=== PATIENT | male | born 1955 | race Caucasian/White ===

== ENCOUNTER 2017-05-11 10:33 | Inpatient (IN) | payer BC ==
[~2017-05-11] VITALS: Ht 188 cm; Wt 101.2 kg
[2017-05-11] MEDS ORDERED: MORPHINE SULFATE 2 MG/ML SYR IV STA (12:15)
[2017-05-11] MEDS ORDERED: SODIUM CHLORIDE FLUSH 10 ML SYR INJ PRN (12:15)
[2017-05-11] MEDS ORDERED: ONDANSETRON HCL INJ 2 MG/ML VIAL IV STA (12:15)
[2017-05-11 12:25] LABS: BASOPHILS % 0.3 % (0.0-1.0); HEMATOCRIT 47.9 % (38.2-49.6); HEMOGLOBIN 16.6 g/dL (14.0-18.0); LYMPHOCYTES # (AUTO) 1.7 (1.0-3.2); LYMPHOCYTES % 13.9 % (18.0-39.1); MEAN CORPUSCULAR HEMOGLOBIN 32.8 pg (28-32); MEAN CORPUSCULAR HGB CONC 34.7 g/dL (31-35); MEAN CORPUSCULAR VOLUME 94.7 fL (81-99); MONOCYTES # (AUTO) 1.2 (0.2-0.8); MONOCYTES % 9.9 % (4.4-11.3); NEUTROPHILS # (AUTO) 9.5 (2.1-6.9); NEUTROPHILS % 75.6 % (38.7-80.0); PLATELET COUNT 148 x10e3/uL (140-360); RED BLOOD COUNT 5.06 x10e6/uL (4.3-5.7); RED CELL DISTRIBUTION WIDTH 13.5 % (11.7-14.4)
[2017-05-11 12:28] LABS: BILIRUBIN,URINE NEGATIVE (NEGATIVE); KETONES,URINE 1+ (NEGATIVE); LEUKOCYTE ESTERASE ,URINE TRACE (NEGATIVE); NITRITE,URINE NEGATIVE (NEGATIVE); URINE UROBILINOGEN 0.2 mg/dL (0.2 - 1)
[2017-05-11 12:41] LABS: ALANINE AMINOTRANSFERASE 17 IU/L (0-55); ALBUMIN 3.3 g/dL (3.5-5.0); ALBUMIN/GLOBULIN RATIO 0.8 (0.8-2.0); ALKALINE PHOSPHATASE 81 IU/L (40-150); AMYLASE 38 U/L (25-125); ANION GAP 12.9 mmol/L (8-16); BLOOD UREA NITROGEN 25 mg/dL (7-26); BUN/CREATININE RATIO 29 (6-25); CARBON DIOXIDE 25 mmol/L (22-29); CHLORIDE 104 mmol/L (98-107); CREATINE KINASE 154 IU/L (30-200); CREATININE, SERUM 0.86 mg/dL (0.72-1.25); EST GLOMERULAR FILTRATION RATE > 60 ML/MIN (60-); GLUCOSE 132 mg/dL (74-118); LIPASE 12 U/L (8-78); POTASSIUM 3.9 mmol/L (3.5-5.1); SODIUM 138 mmol/L (136-145)
[2017-05-11 12:46] LABS: CLARITY,URINE SL CLOUDY (CLEAR); COLOR,URINE AMBER (YELLOW); EPITHELIAL CELLS,URINE FEW /LPF; PROTEIN,URINE DIPSTICK 1+ (NEGATIVE); WBC,URINE (MAN) 0-5 /HPF (0-5)
[2017-05-11] MEDS ORDERED: DIATRIZOATE MEGL/DIATRIZOA SOD 30 ML BTL PO ONE (13:14)
--- NOTE | 2017-05-11 15:17 | Diagnostic Imaging Report ---
PROCEDURE: CT ABDOMEN AND PELVIS WITH CONTRAST TECHNIQUE: The abdomen and pelvis were scanned utilizing a multidetector helical scanner from the diaphragm to the lesser trochanter after the IV administration of 100 cc of Isovue 370 and the oral administration of gastrografin. Coronal and sagittal multiplanar reformations were obtained. COMPARISON: None. INDICATIONS: ABD PAIN FINDINGS: LOWER THORAX: Right lower lobe atelectasis. Aortic valve replacement. Median sternotomy wires. HEPATOBILIARY: Cirrhotic liver morphology with nodular surface contour. No focal hepatic lesions. No biliary ductal dilatation. Gallstones in the gallbladder and gallbladder neck SPLEEN: No splenomegaly. PANCREAS: No focal masses or ductal dilatation. ADRENALS: No adrenal nodules. KIDNEYS/URETERS: No hydronephrosis, stones, or solid mass lesions. PELVIC ORGANS/BLADDER: Mild hyperdensity in the right sided of the bladder measuring up to 0.7 cm in thickness. PERITONEUM / RETROPERITONEUM: No free air. Small amount of free fluid adjacent to liver. LYMPH NODES: No lymphadenopathy. VESSELS: Paraesophageal and perisplenic varices. GI TRACT: 15-20 cm long wall thickening of the proximal jejunum, shortly after the ligament of Treitz. and surrounding inflammatory changes with associated enlarged mesenteric lymph nodes measure up to 0.8 cm. The stomach and remaining small bowel are unremarkable. Scattered sigmoid diverticula without evidence of diverticulitis. BONES AND SOFT TISSUES: Unremarkable. IMPRESSION: 1. 15-20 cm long acutely inflamed proximal jejunum with surrounding lymphadenopathy. There is nonspecific but may be seen in infectious, inflammatory (Crohn's), and neoplastic such as lymphoma. 2. Cirrhosis with small amount of free fluid in the abdomen and pelvis. 3. Nonspecific hyperdensity along the right aspect of the bladder. This may be early contrast excretion from the kidneys. However, no other contrast is identified in the ureter. Recommend cystoscopy or CT urogram versus CT cystogram Dictated by: Pedro Luis Turner M.D. on 05/11/2017 at 15:26 Electronically approved by: Pedro Luis Turner M.D. on 05/11/2017 at 15:26
[2017-05-11] MEDS ORDERED: MORPHINE SULFATE 2 MG/ML SYR IV PRN (16:45)
[2017-05-11] MEDS ORDERED: ULTRAM 50MG50 MG (17:29)
[2017-05-11] MEDS ORDERED: METRONIDAZOLE500 MG PO ×2 (17:29→23:29)
[2017-05-11] MEDS ORDERED: CIPROFLOXACIN500 MG PO (17:29)
[2017-05-11] MEDS: PIPER-TAZ 3.375 GM 50 ML IV SCH (18:26)
[2017-05-11] MEDS: ONDANSETRON HCL INJ 2 MG/ML VIAL IV PRN ×2 (18:26→22:44)
[2017-05-11] MEDS: MORPHINE SULFATE 5 MG/ML VIAL IV PRN ×2 (18:26→22:43)
[2017-05-11] MEDS: SODIUM CHLORIDE 0.9% 1000ML 1,000 ML IV SCH (18:26)
[2017-05-11] MEDS ORDERED: IOPAMIDOL 370 MG/ML 200 ML INFUS..BTL INJ ONE (19:22)
[2017-05-11] MEDS ORDERED: SODIUM CHLORIDE 0.9% 50ML 50 ML ONE (19:22)
[2017-05-11] MEDS: METRONIDAZOLE 500MG/NS 100ML 100 ML IV SCH (19:28)
[2017-05-11 19:54] VITALS: BP 157/80
--- NOTE | 2017-05-11 21:49 | Consultation ---
DATE OF CONSULTATION: May 11, 2017 GASTROENTEROLOGY CONSULTATION REFERRING PHYSICIAN: Dr. Walsh REASON FOR CONSULTATION: Nausea, vomiting, enteritis. HISTORY OF PRESENT ILLNESS: Mr. Carballo is a 61-year-old man, who has largely stayed away from medical care and not see a doctor in a long time. He was in his usual state of health until Tuesday. At that time, he developed significant abdominal pain, chills, and nausea and vomiting. He denies diarrhea. Abdominal pain is upper abdominal, but generalized without radiating to the back. It was likely punched in the stomach of 10 out of 10 severity. He has not been able to tolerate anything orally including his aspirin that he takes for his cardiac issues. He is not aware of any sort of liver disease. His was recently treated for hepatitis C. He has not been on any sick contacts or ate any unusual foods; however, he was on a cruise to the [facility] 3 weeks ago. At which time, they did not eat off the cruise ship. He has also been having hematuria and was later to see a urologist, but has not actually been able to go to that appointment yet. He has not had any blood in his stools that he has noted. He was seen at [facility] a couple of days ago, given Cipro and Flagyl, but was unable to tolerate it p.o. At that time, his CAT scan also showed enteritis and he did not have a leukocytosis at that time. PAST MEDICAL HISTORY 1. Coronary artery disease. 2. Aortic aneurysm, status post repair at the same time as his aortic valve repair. Given that he does not go to the doctor much, he was not aware of any other medical problems. SOCIAL HISTORY: He drinks alcohol socially, but not excess per his report. FAMILY HISTORY: Negative for liver disease. Positive for diabetes in his father. REVIEW OF SYSTEMS: Twelve-system review is positive for that mentioned in HPI; otherwise, unremarkable. PHYSICAL EXAMINATION GENERAL: Calm, alert, oriented. No acute distress. HEENT: Pupils equal, round, reactive to light. NECK: Supple. LUNGS: Clear. CARDIOVASCULAR: S1, S2. ABDOMEN: Soft. He is tender centrally, less so the rest of his abdomen. No rebound, guarding or mass. EXTREMITIES: No clubbing, cyanosis. PSYCH: Calm and cooperative. NEUROLOGIC: Nonfocal. HEM/ONC: No bruising or adenopathy. Electronic health records reviewed for laboratory and radiologic studies as well as history. ASSESSMENT 1. Abnormal jejunal imaging concerning for enteritis. Possibly infectious and neoplastic process is not excluded. He does have leukocytosis. Could be secondary to infectious process or reactive. At the current time, I would agree with continuing him on antibiotics to cover bowel laurie and supportive care, intravenous fluids, some clear liquids as tolerated. Would provide him supportive care in this manner for tomorrow and then, plan for upper enteroscopy on Tuesday if he will be able to tolerate it. Enteroscopy should be able to reach the proximal jejunum with the pediatric colonoscope for further evaluation of his pathology. 2. A diagnosis of cirrhosis based on imaging. Will send off for viral hepatitis studies. He has an abnormal bilirubin, which may be due to stress fasting and metabolism versus underlying liver disease. His other liver function tests and his platelets are actually fine. Will need to send off coagulopathies. Will need to send off an alpha fetoprotein. He will need to be instructed to avoid shellfish in an outpatient basis. Continue with liver screening for function, for hepatocellular carcinoma, and consider vaccination against hepatitis A and B if he is not immune. Additionally, he has hematuria and a bladder issue and they want to see urology. Thank you very much for asking us to see Mr. Carballo. Any questions or concerns, please do not hesitate to contact me. I will follow with you. Job#: [id number] CQ MTDD
[2017-05-11] MEDS ORDERED: PIPER-TAZ 3.375 GM/50 ML BAG IV SCH (22:00)
[2017-05-11] MEDS ORDERED: CIPRO500 MG PO (23:29)
[2017-05-11] MEDS ORDERED: ULTRAM 50MG50 MG PO (23:43)
[2017-05-12] VITALS (10 sets, daily range): BP systolic 130–157; BP diastolic 60–80
[2017-05-12] MEDS: SODIUM CHLORIDE 0.9% 1000ML 1,000 ML IV SCH ×4 (00:42→17:56)
[2017-05-12] MEDS: METRONIDAZOLE 500MG/NS 100ML 100 ML IV SCH ×4 (01:00→17:56)
[2017-05-12] MEDS: PIPER-TAZ 3.375 GM 50 ML IV SCH ×3 (06:15→21:51)
[2017-05-12 06:20] LABS: BASOPHILS # (AUTO) 0.1 (0.0-0.1); BASOPHILS % 0.4 % (0.0-1.0); HEMATOCRIT 44.4 % (38.2-49.6); HEMOGLOBIN 15.3 g/dL (14.0-18.0); LYMPHOCYTES # (AUTO) 1.9 (1.0-3.2); LYMPHOCYTES % 14.6 % (18.0-39.1); MEAN CORPUSCULAR HEMOGLOBIN 32.9 pg (28-32); MEAN CORPUSCULAR HGB CONC 34.5 g/dL (31-35); MEAN CORPUSCULAR VOLUME 95.5 fL (81-99); MONOCYTES # (AUTO) 1.3 (0.2-0.8); NEUTROPHILS # (AUTO) 9.6 (2.1-6.9); NEUTROPHILS % 74.6 % (38.7-80.0); PLATELET COUNT 114 x10e3/uL (140-360); RED BLOOD COUNT 4.65 x10e6/uL (4.3-5.7); RED CELL DISTRIBUTION WIDTH 13.9 % (11.7-14.4)
[2017-05-12 06:37] LABS: INR 1.11; PARTIAL THROMBOPLASTIN TIME 37.1 seconds (23.8-35.5); PROTHROMBIN TIME 14.9 seconds (11.9-14.5)
[2017-05-12 06:45] LABS: ALANINE AMINOTRANSFERASE 12 IU/L (0-55); ALBUMIN 2.8 g/dL (3.5-5.0); ALBUMIN/GLOBULIN RATIO 0.8 (0.8-2.0); ALKALINE PHOSPHATASE 69 IU/L (40-150); ANION GAP 12.2 mmol/L (8-16); BLOOD UREA NITROGEN 25 mg/dL (7-26); BUN/CREATININE RATIO 30 (6-25); CALCIUM 8.5 mg/dL (8.4-10.2); CARBON DIOXIDE 25 mmol/L (22-29); CHLORIDE 107 mmol/L (98-107); CREATININE, SERUM 0.82 mg/dL (0.72-1.25); EST GLOMERULAR FILTRATION RATE > 60 ML/MIN (60-); GLUCOSE 125 mg/dL (74-118); POTASSIUM 4.2 mmol/L (3.5-5.1); SODIUM 140 mmol/L (136-145)
[2017-05-12] MEDS: AMLODIPINE BESYLATE 10 MG TAB PO SCH (11:00)
[2017-05-12] MEDS: FAMOTIDINE 20 MG TAB PO SCH ×2 (12:13→17:56)
--- NOTE | 2017-05-12 16:31 | History and Physical ---
PRIMARY CARE PROVIDER: Dr. Kalyan Roberson. CHIEF COMPLAINT: Abdominal pain. HISTORY OF PRESENT ILLNESS: Mr. Carballo is a 61-year-old gentleman who has had periumbilical sharp stabbing abdominal pain for almost a week now. He was seen at an outside ER a couple days ago. A CT scan showed inflammation in the proximal jejunum and some diverticulosis, and he was discharged on Cipro and Flagyl from the ER. He was unable to keep the medicine down due to nausea and vomiting and presented to our ER for further evaluation. REVIEW OF SYSTEMS: He denies fever, chills or weight loss. He denies sinus congestion or sore throat. He denies chest pain or palpitations. He denies shortness of breath, wheezing or cough. He is complaining of epigastric and periumbilical sharp stabbing abdominal pain with some nausea and vomiting, no diarrhea, no melena. He denies dysuria or flank pain although he does state that he has noticed hematuria. He denies joint pain or swelling. He denies rash or pruritus. He denies bleeding or bruising. He denies headache, vertigo or loss of consciousness. He denies depression, agitation, homicidal or suicidal ideation. PAST MEDICAL HISTORY: Significant only for the hematuria that was noted about a month or 2 ago at the PCP's office. He has been waiting for an appointment to see the urologist. He is on no chronic medications. He does have a history of repair of ascending aortic aneurysm, aortic valve replacement with biosynthetic valve that was done in 2016. He does not have to be anticoagulated as a result. ALLERGIES: HE HAS NO KNOWN DRUG ALLERGIES. FAMILY HISTORY: Unremarkable. SOCIAL HISTORY: The patient is . Georgian is his primary language. He does not smoke, drink or use illegal drugs, and he is generally independently functioning. PHYSICAL EXAMINATION: PSYCHIATRIC: He is alert and oriented times 3 with normal mood and affect. CONSTITUTIONAL: He has a normal body habitus. Is in no acute distress. VITAL SIGNS: Blood pressure 146/71. Pulse 87 and regular. Respiratory rate 20. O2 sat 92%. Temperature 98.8. HEENT: His head is atraumatic. His eyes are anicteric with clear conjunctivae. Ears and nares are without erythema or discharge. Oropharynx is clear. NECK: Is supple with no mass or thyromegaly. LYMPHATIC SYSTEM: He has no palpable cervical, axillary or inguinal adenopathy. CARDIOVASCULAR: His heart has a regular rate and rhythm. He does have a very slight 1/6 to 2/6 systolic ejection murmur at the left sternal border. He has no carotid bruit. He has no peripheral edema. He has palpable dorsal pedal pulses. RESPIRATORY: Lungs are clear to auscultation and percussion with normal respiratory effort. GASTROINTESTINAL: His abdomen is soft. He has some mild periumbilical and epigastric tenderness without rebound or guarding. He has no hepatosplenomegaly or masses palpable, and normal bowel sounds are present. CUTANEOUS: His skin is warm and dry to the touch with no rash or skin breakdown. MUSCULOSKELETAL: His joints are in normal alignment without erythema or swelling. He has no calf tenderness. NEUROLOGIC: Exam is nonfocal with intact cranial nerves and no motor or sensory deficits. DIAGNOSTIC STUDIES: CT scan of the abdomen shows cirrhosis and some esophageal varices. It shows a 10 cm proximal jejunum with circumferential wall thickening and surrounding inflammatory changes and a 0.7 cm hyperintensity in the right bladder wall. His UA has 6 to 10 red cells, no white cells. His culture has no growth at 24 hours. His EKG shows normal sinus rhythm with left atrial enlargement. His chemistry profile shows normal electrolytes. CO2 25. Creatinine 0.82, BUN 25 for a normal GFR. Glucose 125. Calcium 8.5. His transaminases and alk phos are normal, bilirubin slightly elevated at 1.7. CBC shows a white count of 12.8 with 75% neutrophils and 15% lymphocytes. Hemoglobin 15.3, hematocrit 44.4, and platelet count 114,000. IMPRESSION AND PLAN: 1. Enteritis. Will start the patient on IV Zosyn and Flagyl. Will check inflammatory bowel labs and will consult GI for possible endoscopy. 2. Hematuria and bladder wall mass. Will consult Urology for evaluation. 3. Cirrhosis. Will check hepatitis panel, most likely from past alcohol consumption. 4. Elevated blood pressure without a diagnosis of hypertension, and the patient's blood pressure 146/71. Will start Norvasc daily and monitor his blood pressure. 5. For prophylaxis, will use SCDs for DVT prophylaxis and Pepcid for GI prophylaxis. Job#: [id number] EV
[2017-05-12] MEDS: ONDANSETRON HCL INJ 2 MG/ML VIAL IV PRN (18:23)
[2017-05-12] MEDS: MORPHINE SULFATE 5 MG/ML VIAL IV PRN (18:26)
[2017-05-13] VITALS: BP 144/63
[2017-05-13] MEDS: METRONIDAZOLE 500MG/NS 100ML 100 ML IV SCH ×4 (00:25→18:31)
[2017-05-13] MEDS: MORPHINE SULFATE 5 MG/ML VIAL IV PRN ×5 (00:25→23:08)
[2017-05-13] MEDS: ONDANSETRON HCL INJ 2 MG/ML VIAL IV PRN (00:25)
[2017-05-13] MEDS: SODIUM CHLORIDE 0.9% 1000ML 1,000 ML IV SCH ×4 (00:42→16:42)
[2017-05-13 04:00] VITALS: BP 120/62
[2017-05-13] MEDS: PIPER-TAZ 3.375 GM 50 ML IV SCH ×3 (05:06→22:27)
[2017-05-13] MEDS: FAMOTIDINE 20 MG TAB PO SCH ×2 (07:30→14:39)
[2017-05-13 08:00] VITALS: BP 133/67
[2017-05-13] MEDS: AMLODIPINE BESYLATE 10 MG TAB PO SCH (09:00)
[2017-05-13 12:00] VITALS: BP 122/63
--- NOTE | 2017-05-13 15:33 | Consultation ---
DATE OF CONSULTATION: May 13, 2017 UROLOGY CONSULTATION REASON FOR CONSULTATION: Gross and microscopic hematuria. HISTORY OF PRESENT ILLNESS: Jake Carballo is a 61-year-old man who had noted slight blood tinging in his urine a couple of months ago. Patient has had multiple urinalyses, documenting microscopic hematuria. He is scheduled to see us as an outpatient, but ended up becoming ill and therefore was admitted to the hospital, diagnosed with jejunal enteritis. Biopsies were performed. He has been on antibiotics. He has had persistent nausea and vomiting. Patient denies any lower tract obstructive symptoms or any lower tract irritative symptoms. Denies any previous urinary tract infections. PAST MEDICAL AND SURGICAL HISTORY 1. Status post aortic valve replacement with porcine valve with repair of ascending aortic aneurysm performed by Dr. Morales. 2. Cirrhosis by CT scanning. FAMILY HISTORY: Noncontributory to the urological problems. SOCIAL HISTORY: The patient quit smoking 5 years ago after smoking only 1 pack per cigarettes per week. He drinks socially on weekends only. 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 He has supportive family at the bedside. CURRENT MEDICATIONS: Please refer to the MAR. ALLERGIES: NONE KNOWN. REVIEW OF SYSTEMS: As discussed above in history of present illness and past medical history, is otherwise negative for all other systems. PHYSICAL EXAMINATION GENERAL: Healthy-appearing 61-year-old man lying in bed, in no apparent distress. VITAL SIGNS: He is currently afebrile. Vital signs are currently stable. ABDOMEN: Soft, nondistended, nontender, without costovertebral angle tenderness. Kidneys are not palpable. No hepatosplenomegaly. No obvious evidence of hernia. GENITOURINARY: Testes are descended bilaterally. Testes and epididymis are bilaterally palpably normal. The patient has a normal circumcised male phallus with normal meatus without any lesions. Digital rectal examination is deferred at the present time. For the remaining physical examination systems, please refer to admission history and physical on the chart. LABORATORY STUDIES: His urine culture is negative. His white blood cell count is 12,850, his hemoglobin is 15.3, platelets are low at 114,000. The patient's creatinine is normal. His bilirubin is elevated at 1.7. Creatinine is normal at 0.82. Urinalysis is significant for 6 to [address] scan of the abdomen and pelvis was remarkable for only some bladder wall thickening versus early excretion of contrast on the right side of the bladder, but no evidence of hydronephrosis, stones, or renal lesions. ASSESSMENT 1. Gross hematuria. 2. Microscopic hematuria that is persistent. 3. Nausea and vomiting. 4. Leukocytosis. 5. Arthritis. 6. Thrombocytopenia. PLAN 1. I defer the abdominal pain, leukocytosis, and thrombocytopenia to the other physicians on the case. 2. I believe we should wait until the patient's current inflammatory condition subsides and then return to the operating room on an outpatient basis in several weeks to perform cystoscopy and retrograde ureteropyelography. 3. Ongoing urological followup is certainly indicated. Thank you very much for involving us in the care of your patient. Will happy to follow him along with you as well as in outpatient. Job#: [id number] PAT cc:Kalyan Roberson DO
[2017-05-13 17:40] VITALS: BP 125/65
[2017-05-13] MEDS ORDERED: PROPOFOL IV EMULSION 10 MG/ML 20 ML VIAL ONE (17:43)
[2017-05-13] MEDS ORDERED: FENTANYL CITRATE/PF 100MCG/2 ML INJ ONE (19:14)
[2017-05-13 20:00] VITALS: BP 135/70
[2017-05-14] VITALS (7 sets, daily range): BP systolic 128–147; BP diastolic 52–78
[2017-05-14] MEDS: SODIUM CHLORIDE 0.9% 1000ML 1,000 ML IV SCH ×3 (00:32→16:42)
[2017-05-14] MEDS: METRONIDAZOLE 500MG/NS 100ML 100 ML IV SCH ×5 (00:32→23:52)
[2017-05-14] MEDS: PIPER-TAZ 3.375 GM 50 ML IV SCH ×3 (05:40→21:33)
[2017-05-14 07:57] LABS: BASOPHILS # (AUTO) 0.1 (0.0-0.1); BASOPHILS % 1.3 % (0.0-1.0); EOSINOPHILS # (AUTO) 0.4 (0.0-0.4); EOSINOPHILS % 4.6 % (0.0-6.0); HEMOGLOBIN 13.5 g/dL (14.0-18.0); LYMPHOCYTES # (AUTO) 1.4 (1.0-3.2); LYMPHOCYTES % 18.8 % (18.0-39.1); MEAN CORPUSCULAR HGB CONC 34.6 g/dL (31-35); MEAN CORPUSCULAR VOLUME 95.4 fL (81-99); MONOCYTES # (AUTO) 0.8 (0.2-0.8); MONOCYTES % 10.2 % (4.4-11.3); NEUTROPHILS % 64.8 % (38.7-80.0); PLATELET COUNT 97 x10e3/uL (140-360); RED BLOOD COUNT 4.09 x10e6/uL (4.3-5.7); RED CELL DISTRIBUTION WIDTH 13.4 % (11.7-14.4)
[2017-05-14 08:14] LABS: ANION GAP 11.6 mmol/L (8-16); BLOOD UREA NITROGEN 15 mg/dL (7-26); BUN/CREATININE RATIO 20 (6-25); CALCIUM 7.5 mg/dL (8.4-10.2); CARBON DIOXIDE 24 mmol/L (22-29); CHLORIDE 105 mmol/L (98-107); CREATININE, SERUM 0.74 mg/dL (0.72-1.25); EST GLOMERULAR FILTRATION RATE > 60 ML/MIN (60-); GLUCOSE 98 mg/dL (74-118); POTASSIUM 3.6 mmol/L (3.5-5.1); SODIUM 137 mmol/L (136-145)
[2017-05-14] MEDS: AMLODIPINE BESYLATE 10 MG TAB PO SCH (09:00)
[2017-05-14] MEDS: FAMOTIDINE 20 MG TAB PO SCH (09:17)
[2017-05-14] MEDS: PANTOPRAZOLE 40 MG 10ML VIAL IV SCH (18:02)
[2017-05-14] MEDS: MORPHINE SULFATE 5 MG/ML VIAL IV PRN (21:46)
[2017-05-15] VITALS: BP 139/83
[2017-05-15] MEDS: SODIUM CHLORIDE 0.9% 1000ML 1,000 ML IV SCH ×2 (01:31→09:56)
[2017-05-15 04:00] VITALS: BP 148/74
[2017-05-15] MEDS: METRONIDAZOLE 500MG/NS 100ML 100 ML IV SCH ×2 (05:20→13:00)
[2017-05-15] MEDS: PIPER-TAZ 3.375 GM 50 ML IV SCH ×3 (06:31→22:04)
[2017-05-15 08:00] VITALS: BP 149/82
[2017-05-15] MEDS: PANTOPRAZOLE 40 MG 10ML VIAL IV SCH (09:45)
[2017-05-15] MEDS: METRONIDAZOLE 500 MG TAB PO SCH ×2 (13:38→22:04)
[2017-05-15 14:30] VITALS: BP 151/75
[2017-05-15 16:45] VITALS: BP 148/70
[2017-05-15] MEDS ORDERED: LACTOBACILLUS ACIDOPHILUS CAPSULE PO SCH (17:00)
[2017-05-15] MEDS: PANTOPRAZOLE SOD 40 MG TABEC PO SCH (17:20)
[2017-05-15 20:00] VITALS: BP 144/68
[2017-05-15] MEDS: LACTOBACILLUS ACIDOPHILUS CAPSULE PO SCH (22:03)
[2017-05-16] VITALS: BP 135/74
[2017-05-16 01:38] VITALS: BP 135/74
[2017-05-16 04:00] VITALS: BP 139/77
[2017-05-16] MEDS: PIPER-TAZ 3.375 GM 50 ML IV SCH (06:22)
[2017-05-16] MEDS: METRONIDAZOLE 500 MG TAB PO SCH (06:22)
--- NOTE | 2017-05-16 07:14 | Progress Note ---
DATE: PCP: Dr. Kalyan Roberson CONSULTANTS: Dr. Clayton Merino, urology, Dr. Bob Ponce, GI. CHIEF COMPLAINT: Abdominal pain. ALLERGIES: NO KNOWN DRUG ALLERGIES. SUBJECTIVE: Patient reports he is on clear liquids and tolerating them well. Would like to be advanced diet. OBJECTIVE VITALS: Temperature 97.7, pulse 77, blood pressure 140/82, respirations 20, and satting 96% on room air. Height 6 feet 2 inches, weight 223. GENERAL: Patient is awake, alert and oriented times 3. LUNGS: Clear to auscultation bilaterally. Normal respiratory effort. HEENT: Anicteric. Extraocular muscles are intact. ABDOMEN: Soft. Bowel sounds present. CV: Regular rate and rhythm. No murmurs appreciated. NECK: Supple. Trachea midline. EXTREMITIES: No calf tenderness. NEUROLOGICAL: Nonfocal. MEDICATIONS: Please see MAR. Some medications will be adjusted. No labs were done today. Continue pending hepatitis panel and ANCA panel. Urine cultures were negative. EGD was done and shows gastritis, jejunitis, gastric retention. DIAGNOSES 1. Enteritis: Continue with Zosyn intravenously. Flagyl will be changed to p.o. 500 mg t.i.d. Will also add probiotics 1 p.o. b.i.d. Will advance diet to as tolerated in preparation for discharge. 2. Hematuria with bladder mass: Urology is following. Will follow up as an outpatient. 3. Cirrhosis: Hepatitis panel is pending. Gastroenterology is following. with recent treatment with Harvoni treatment for hepatitis C. 4. Elevated blood pressure: Controlled with current medications. Continue to take Norvasc. Has no history of hypertension. Will respect the patient's wish. 5. History of hypocalcemia during the admission: Last calcium level recorded was on May 14, 2017, of 7.5. Will repeat blood work in the morning. Protonix has been changed from intravenous to p.o. as well. Intravenous fluids have been discontinued due to the patient tolerating fluids well. DICTATED BY BIANCA RODRIGUEZ NP Job#: [id number] AL
[2017-05-16 08:00] VITALS: BP 150/80
[2017-05-16] MEDS ORDERED: FLAGYL500 MG PO (08:30)
[2017-05-16] MEDS ORDERED: CEFTIN PEG (08:30)
[2017-05-16] MEDS ORDERED: PROTONIX40 MG/ML PO (08:30)
[2017-05-16] MEDS ORDERED: TYLENOL # 31 EA PO (08:30)
[2017-05-16] MEDS ORDERED: Lactobacillus Acidophilus PO (08:30)
[2017-05-16] MEDS ORDERED: CEFTIN PO (08:34)
[2017-05-16] MEDS: PANTOPRAZOLE SOD 40 MG TABEC PO SCH (08:58)
[2017-05-16] MEDS: LACTOBACILLUS ACIDOPHILUS CAPSULE PO SCH (08:58)
[2017-05-16] MEDS ORDERED: ULTRAM 50MG50 MG PO (09:06)
[2017-05-16 09:16] LABS: BASOPHILS # (AUTO) 0.1 (0.0-0.1); BASOPHILS % 0.6 % (0.0-1.0); EOSINOPHILS # (AUTO) 0.4 (0.0-0.4); EOSINOPHILS % 4.5 % (0.0-6.0); HEMOGLOBIN 15.3 g/dL (14.0-18.0); LYMPHOCYTES % 25.1 % (18.0-39.1); MEAN CORPUSCULAR HGB CONC 34.8 g/dL (31-35); MEAN CORPUSCULAR VOLUME 94.8 fL (81-99); MONOCYTES # (AUTO) 0.7 (0.2-0.8); MONOCYTES % 8.7 % (4.4-11.3); NEUTROPHILS # (AUTO) 4.8 (2.1-6.9); NEUTROPHILS % 60.8 % (38.7-80.0); PLATELET COUNT 139 x10e3/uL (140-360); RED BLOOD COUNT 4.64 x10e6/uL (4.3-5.7); RED CELL DISTRIBUTION WIDTH 13.6 % (11.7-14.4)
[2017-05-16 09:40] LABS: ANION GAP 11.5 mmol/L (8-16); BLOOD UREA NITROGEN 7 mg/dL (7-26); BUN/CREATININE RATIO 8 (6-25); CALCIUM 8.2 mg/dL (8.4-10.2); CARBON DIOXIDE 26 mmol/L (22-29); CHLORIDE 107 mmol/L (98-107); CREATININE, SERUM 0.83 mg/dL (0.72-1.25); EST GLOMERULAR FILTRATION RATE > 60 ML/MIN (60-); GLUCOSE 114 mg/dL (74-118); POTASSIUM 3.5 mmol/L (3.5-5.1); SODIUM 141 mmol/L (136-145)
--- NOTE | 2017-05-17 11:44 | Discharge Summary ---
ADMITTING DIAGNOSES 1. Enteritis. 2. Hematuria with bladder wall mass. 3. Cirrhosis. 4. Elevated blood pressure. DISCHARGE DIAGNOSES 1. Enteritis. 2. Hematuria with bladder wall mass. 3. Cirrhosis. 4. Elevated blood pressure. 5. Ruled out hypertension. HISTORY: Patient has a history of hematuria that was noticed about a month or 2 ago at PCP's office. He has been waiting to see the urologist. He does have a history of ascending aortic aneurysm, aortic valve replacement with a biosynthetic valve that was done in 2016. He does not have to be anticoagulated as the result. He is on no chronic medications. HOSPITAL COURSE: A 61-year-old gentleman presented with periumbilical sharp stabbing abdominal pain for almost 2 weeks. He was seen at an outside ER a couple days ago. A CAT scan shows inflammation on the proximal jejunum and some diverticulosis and he was discharged on Cipro and Flagyl. He was unable to keep the medication down due to nausea and vomiting and presented to the ER for further evaluation. Patient was started on Zosyn and Flagyl at the hospital and GI consulted for possible endoscopy. For hematuria, urology was consulted. Hepatitis panel was checked for due to cirrhosis. Patient was started on Norvasc daily for elevated blood pressure, but refused and did not need it during the hospital stay. His blood pressure dropped once the pain and nausea went away. Per GI, an EGD was done, which showed gastritis, jejunitis and gastric retention. Biopsies were done, which are not back at the time of discharge, but when speaking to GI, he said it could have been an ischemic area that they need to look at further. Patient can discharge home and followup outpatient with GI. ANCA and hepatitis panels were still pending at the time of discharge. They will also followup with GI for those results. Patient was started on clear liquids and the diet was advanced as tolerated. Patient was able to eat regular foods by the time of discharge. A CAT scan was done on admission that showed 15 to 20 cm long acutely inflamed proximal jejunum with surrounding lymphadenopathy, cirrhosis with a small amount of free fluid, and nonspecific hyperintensity along the right aspect of the bladder. Per urology, he did not want to do any procedures while the patient was dealing with an illness, but once the inflammatory condition subsided, then urology said the patient can follow up to do cystoscopy and retrograde outpatient in a few weeks. Urine cultures completed were negative. Vital signs were stable. Patient tolerating diet, lives at home with family, and is ready to go home. All consults have approved the discharge. Patient was sent home on p.o. antibiotics per GI and PPI and he will follow that with GI. DICTATED BY: LETTY ESTRADA NP BRONSON AGUIRRE MD Job#: [id number] VAS
== END 2017-05-16 10:07 | disposition home or self-care (01) | DRG 372 ==
LOC: ER 10:33 → ERHOLD 16:51 → MED/SURG 19:34
PROVIDERS: ADMIT Internal Medicine; ATTEND Internal Medicine
PROC: 0DB88ZX Excision of Small Intestine, Via Natural or Artificial Opening Endoscopic, Diagnostic (ICD-10-PCS; 2017-05-13)
PROC: 0DB68ZX Excision of Stomach, Via Natural or Artificial Opening Endoscopic, Diagnostic (ICD-10-PCS; principal; 2017-05-13 10:00)
DX: A04.9 Bacterial intestinal infection, unspecified (principal); K55.9 Vascular disorder of intestine, unspecified; D69.6 Thrombocytopenia, unspecified; E83.51 Hypocalcemia; K74.60 Unspecified cirrhosis of liver; R03.0 Elevated blood-pressure reading, without diagnosis of hypertension; N32.9 Bladder disorder, unspecified; R31.0 Gross hematuria; R11.2 Nausea with vomiting, unspecified; D72.829 Elevated white blood cell count, unspecified; M19.90 Unspecified osteoarthritis, unspecified site; Z87.891 Personal history of nicotine dependence; I25.10 Atherosclerotic heart disease of native coronary artery without angina pectoris; D64.9 Anemia, unspecified; Z95.2 Presence of prosthetic heart valve; K31.89 Other diseases of stomach and duodenum; R59.0 Localized enlarged lymph nodes; K29.50 Unspecified chronic gastritis without bleeding; K31.9 Disease of stomach and duodenum, unspecified; R31.29 Other microscopic hematuria
CPT/HCPCS: 36415; 43239; 74177; 80048; 80053; 81001; 82105; 82150; 82550; 82553; 83690; 84484; 85025; 85610; 85730; 86256; 86671; 86704; 86706; 86803; 87086; 87340; 87522; 88305; 88312; 88342; 93005; 96361; 99284; J2270; J2405; J2543; J7030; Q9967

== ENCOUNTER 2017-06-01 10:11 | Observation (INO) | payer BC ==
--- NOTE | 2017-05-30 15:56 | Diagnostic Imaging Report ---
PROCEDURE: Frontal and lateral views of the chest. COMPARISON: None. INDICATIONS: PRE OP RENAL SURGERY FINDINGS: Lines/tubes: None. Lungs: The lungs are well inflated and clear. There is no evidence of pneumonia or pulmonary edema. Pleura: There is no pleural effusion or pneumothorax. Heart and mediastinum: The heart and the mediastinum are normal. Median sternotomy wires. Prosthetic valve overlying the heart shadow. Bones: No acute bony abnormality. IMPRESSION: 1. No acute cardiopulmonary disease. Dictated by: Umberto Emery M.D. on 05/30/2017 at 16:05 Electronically approved by: Umberto Emery M.D. on 05/30/2017 at 16:05
[~2017-06-01] VITALS: Ht 188 cm; Wt 100.7 kg
[~2017-06-01 10:11] MED LIST: BELLADONNA/OPIUM 60 MG SUPP PR ONE; CEFTIN PEG; CEFTIN PO; CIPRO500 MG PO; CIPROFLOXACIN500 MG PO; FLAGYL500 MG PO; IOPAMIDOL 610MG/1ML 300 MG/ML VIAL IV ONE; Lactobacillus Acidophilus PO; METRONIDAZOLE500 MG PO; PROTONIX40 MG/ML PO; TYLENOL # 31 EA PO; ULTRAM 50MG50 MG; ULTRAM 50MG50 MG PO
[2017-06-01] MEDS ORDERED: GENTAMICIN 80MG/NS 100 ML 200 ML IV ONE (10:16)
[2017-06-01] MEDS ORDERED: FENTANYL CITRATE/PF 100MCG/2 ML INJ ONE ×2 (13:17→20:10)
[2017-06-01] MEDS ORDERED: MORPHINE SULFATE 5 MG/ML VIAL ONE (13:39)
[2017-06-01 16:30] VITALS: BP_SYST 108; BP_SYST 122; BP_DIAS 63; BP_DIAS 77
[2017-06-01] MEDS ORDERED: BELLADONNA/OPIUM 60 MG SUPP PR PRN (17:15)
[2017-06-01 20:00] VITALS: BP 114/76
[2017-06-01] MEDS ORDERED: SEVOFLURANE INHAL SOLN 250 ML PEN BTL ONE (20:17)
[2017-06-01] MEDS ORDERED: ONDANSETRON HCL INJ 2 MG/ML VIAL ONE (20:17)
[2017-06-01] MEDS ORDERED: LIDOCAINE HCL 2% LOCAL INJ 5 ML SDV VIAL INJ ONE (20:17)
[2017-06-01] MEDS ORDERED: PROPOFOL IV EMULSION 10 MG/ML 20 ML VIAL ONE (20:17)
[2017-06-01] MEDS ORDERED: DEXAMETHASONE SOD PHOS INJ 4 MG/ML VIAL ONE (20:17)
[2017-06-01] MEDS ORDERED: PHENYLEPHRINE HCL 1% 10 MG/ML VIAL ONE (20:17)
[2017-06-01] MEDS: PANTOPRAZOLE SOD 40 MG TABEC PO SCH (21:14)
[2017-06-02] VITALS: BP 124/66
[2017-06-02] MEDS ORDERED: FAMOTIDINE 20 MG TAB PO SCH (07:45)
[2017-06-02] MEDS ORDERED: ACETAMINOPHEN 325 MG TAB PO PRN (07:45)
[2017-06-02 08:00] VITALS: BP 115/73
[2017-06-02] MEDS ORDERED: [UNRECOGNIZED DRUG - OTHER] PO SCH (08:00)
[2017-06-02] MEDS ORDERED: LACTOBACILLUS ACIDOPHILUS CAPSULE PO SCH (08:00)
[2017-06-02 09:16] LABS: BASOPHILS % 0.3 % (0.0-1.0); HEMATOCRIT 41.5 % (38.2-49.6); HEMOGLOBIN 13.9 g/dL (14.0-18.0); LYMPHOCYTES # (AUTO) 1.7 (1.0-3.2); LYMPHOCYTES % 23.7 % (18.0-39.1); MEAN CORPUSCULAR HEMOGLOBIN 32.6 pg (28-32); MEAN CORPUSCULAR HGB CONC 33.5 g/dL (31-35); MEAN CORPUSCULAR VOLUME 97.4 fL (81-99); MONOCYTES # (AUTO) 0.4 (0.2-0.8); MONOCYTES % 4.9 % (4.4-11.3); NEUTROPHILS # (AUTO) 5.2 (2.1-6.9); NEUTROPHILS % 70.7 % (38.7-80.0); PLATELET COUNT 132 x10e3/uL (140-360); RED BLOOD COUNT 4.26 x10e6/uL (4.3-5.7); RED CELL DISTRIBUTION WIDTH 13.4 % (11.7-14.4)
[2017-06-02 09:43] LABS: ALANINE AMINOTRANSFERASE 24 IU/L (0-55); ALBUMIN 2.5 g/dL (3.5-5.0); ALBUMIN/GLOBULIN RATIO 0.7 (0.8-2.0); ALKALINE PHOSPHATASE 92 IU/L (40-150); ANION GAP 13.9 mmol/L (8-16); BLOOD UREA NITROGEN 15 mg/dL (7-26); BUN/CREATININE RATIO 20 (6-25); CALCIUM 8.9 mg/dL (8.4-10.2); CARBON DIOXIDE 22 mmol/L (22-29); CHLORIDE 105 mmol/L (98-107); CREATININE, SERUM 0.76 mg/dL (0.72-1.25); EST GLOMERULAR FILTRATION RATE > 60 ML/MIN (60-); GLUCOSE 170 mg/dL (74-118); POTASSIUM 4.9 mmol/L (3.5-5.1); SODIUM 136 mmol/L (136-145)
[2017-06-02] MEDS: PANTOPRAZOLE SOD 40 MG TABEC PO SCH (10:00)
[2017-06-02] MEDS ORDERED: TYLENOL WITH C1 EACH PO (10:57)
[2017-06-02] MEDS ORDERED: DITROPAN PO (10:57)
[2017-06-02] MEDS ORDERED: PROTONIX40 MG/ML PO ×2 (11:34→11:40)
[2017-06-02] MEDS ORDERED: COLACE100 MG PO (12:32)
--- NOTE | 2017-06-03 19:57 | Discharge Summary ---
ADMISSION DIAGNOSIS: Hematuria. DISCHARGE DIAGNOSES 1. Hematuria. 2. Bladder tumor. 3. Status post transurethral resection of the prostate and Marie catheter placement. HISTORY: The patient has a history of hematuria that has been around for about 2 months. He does not have any chronic medications or surgical history. He had a repair of the ascending aortic aneurysm, aortic valve replacement with biosynthetic valve done in 2016. He is not on any anticoagulation as a result. HOSPITAL COURSE: A 61-year-old male who presented for outpatient procedure with urology. The patient was to have a cystoscopy retrograde pyelogram per urology outpatient, but after the procedure his hematuria persisted and so per Dr. Merino the patient was to be admitted in observation with Dr. Walsh's group as the internal medicine doctor. Per the procedure note, the patient was found to have bladder cancer with persistent hematuria. He was then irrigated per the nursing staff. A 22-Moroccan Marie catheter placed, which will be left in at the time of discharge and the patient will follow up with Dr. Merino in 2 weeks. On discharge, hemoglobin was 13.9, hematocrit 41.5, sodium 136, potassium 4.9. Vital signs stable and the patient afebrile. The patient was sent home with Tylenol No. [address] D[address]rop[address] Merino. Dictated by: Maribel Gabriel NP BRONSON WALSH MD Job#: [id number] GH
--- NOTE | 2017-07-21 05:07 | Operative Report ---
DATE OF PROCEDURE: June 01, 2017 PREOPERATIVE DIAGNOSIS: Gross hematuria. POSTOPERATIVE DIAGNOSES 1. Gross hematuria. 2. Right lateral wall large bladder tumor. 3. Small bladder tumor, posterior bladder wall. 4. 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 OPERATIONS PERFORMED 1. Cystourethroscopy with bilateral ureteral catheterization and retrograde ureteropyelography (separate procedure performed for the hematuria). 2. Interpretation of retrograde ureteropyelography. 3. Supervision of fluoroscopy. No radiologist present. 4. Cystourethroscopy with transurethral resection of prostatic urethral tumor from the prostate bed (separate procedure performed for the diagnosis of the tumor). 5. Cystourethroscopy with transurethral resection and treatment of small posterior wall bladder tumor (separate procedure performed for the small posterior wall bladder tumor). 6. Cystourethroscopy with transurethral resection of large right-sided lateral bladder wall tumor (separate procedure performed for that diagnosis.). ANESTHESIA: General. COMPLICATIONS: None. CLINICAL SUMMARY: Jake Carballo is a 61-year-old man who was found to have some hematuria. He was admitted for non-urological reasons. He is brought to perform cystoscopy and evaluate and manage any abnormalities. He is aware of the risks of bleeding, infection, injury to adjacent structures, need additional procedures, and elected to proceed. OPERATIVE PROCEDURE IN DETAIL: Informed consent was verified. Jake Carballo was properly identified and taken to the operating room and placed on the cystoscopy table in the supine position. Anesthesia was uneventfully begun. The patient was then carefully and gently repositioned in the dorsal lithotomy position with all pressure points well-padded. His genitalia were prepared and draped in the usual sterile fashion. The 22.5-Hungarian cystoscope sheath with visual obturator in place was atraumatically inserted in the patient's urethra. It was guided down the unremarkable urethra through the normal sphincteric region into the patient's prostate bed where there was a tumor. This tumor appeared to be on a pedicle, and the pedicle was located right from the bladder neck and the approximately 5 o'clock position. We entered the patient's bladder, and panendoscopy revealed a small tumor in the posterior wall, and a large greater than 5-cm tumor in the right lateral wall. An 8-Hungarian catheter was used to cannulate each ureter and retrograde ureteropyelograms were performed. Interpretation of retrograde ureteropyelography. Contrast was instilled in a retrograde fashion bilaterally. There were no tumors. No stones and no diverticula. Unobstructed drainage was observed bilaterally fluoroscopically. We utilized the cold cup biopsy forceps to resect the pedunculated tumor off of the bladder neck. We obtained biopsies of that tumor bed, and then utilized Bugbee electrode to fulgurate the base. We treated the posterior wall bladder lesion by excising it with a cold cup biopsy forceps and then fulgurating the base with a Bugbee electrode. The large bladder tumor from the right bladder wall was then progressively resected until no visible tumor remained. The pinpoint electrocautery was utilized to achieve hemostasis. We evacuated all bladder tumor pieces. This was verified endoscopically. The cystoscope was withdrawn. Marie catheter was placed. It was irrigated to and fro to ensure it worked properly. A belladonna and opium suppository was placed revealing a 25 g prostate, smooth, nonfluctuant without any nodules. The patient was then uneventfully reversed from anesthesia and taken to the recovery room in stable condition. There were no complications with the procedure. He tolerated the procedure well. Plans will be to order the patient 6 units to begin BCG induction immunotherapy. We will follow the patient up in the office to begin that treatment. Job#: [id number] NORM
== END 2017-06-02 12:50 | disposition home or self-care (01) ==
LOC: OR 10:11 → MED/SURG2 17:25
PROVIDERS: ADMIT Internal Medicine; ATTEND Internal Medicine
DX: C67.4 Malignant neoplasm of posterior wall of bladder (principal); C67.2 Malignant neoplasm of lateral wall of bladder; C67.5 Malignant neoplasm of bladder neck; K29.70 Gastritis, unspecified, without bleeding; I10 Essential (primary) hypertension; Z01.818 Encounter for other preprocedural examination; Z95.2 Presence of prosthetic heart valve
CPT/HCPCS: 36415; 52005; 52240; 71046; 74420; 80053; 85025; 88305; G0378 ×2; J1100; J1580; J2001; J2270; J2370; J2405; Q9967

== ENCOUNTER → 2017-11-25 | Day surgery (SDC) | payer BC ==
[2017-11-24 15:49] LABS: BASOPHILS # (AUTO) 0.1 (0.0-0.1); BASOPHILS % 1.6 % (0.0-1.0); EOSINOPHILS # (AUTO) 0.2 (0.0-0.4); EOSINOPHILS % 4.9 % (0.0-6.0); HEMATOCRIT 42.8 % (38.2-49.6); HEMOGLOBIN 14.8 g/dL (14.0-18.0); LYMPHOCYTES # (AUTO) 1.6 (1.0-3.2); LYMPHOCYTES % 42.8 % (18.0-39.1); MEAN CORPUSCULAR HEMOGLOBIN 33.3 pg (28-32); MEAN CORPUSCULAR HGB CONC 34.6 g/dL (31-35); MEAN CORPUSCULAR VOLUME 96.2 fL (81-99); MONOCYTES # (AUTO) 0.5 (0.2-0.8); MONOCYTES % 14.6 % (4.4-11.3); NEUTROPHILS # (AUTO) 1.3 (2.1-6.9); NEUTROPHILS % 35.8 % (38.7-80.0); PLATELET COUNT 80 x10e3/uL (140-360); RED BLOOD COUNT 4.45 x10e6/uL (4.3-5.7); RED CELL DISTRIBUTION WIDTH 15.1 % (11.7-14.4)
[2017-11-24 16:06] LABS: BLOOD UREA NITROGEN 14 mg/dL (7-26); BUN/CREATININE RATIO 19 (6-25); CALCIUM 9.1 mg/dL (8.4-10.2); CARBON DIOXIDE 26 mmol/L (22-29); CHLORIDE 110 mmol/L (98-107); CHOLESTEROL 154 MD/DL (0-199); CREATININE, SERUM 0.74 mg/dL (0.72-1.25); EST GLOMERULAR FILTRATION RATE > 60 ML/MIN (60-); GLUCOSE 79 mg/dL (74-118); HDL CHOLESTEROL 52 MG/DL (40-60); LDL CHOLESTEROL 88 MG/DL (60-130); SODIUM 142 mmol/L (136-145); TRIGLYCERIDES 68 MG/DL (0-149)
[2017-11-25] VITALS (11 sets, daily range): BP systolic 109–149; BP diastolic 68–86
[~2017-11-25] MED LIST changes: +ADENOSINE 3MG/1ML 30ML VIAL ONE; +ALPRAZOLAM 0.5 MG TAB ONE; +ASPIR 8181 MG PO; +ASPIRIN 325 MG TAB ONE; -BELLADONNA/OPIUM 60 MG SUPP PR ONE; +CLOPIDOGREL BISULFATE 75 MG TAB ONE; +COLACE100 MG PO; +DIPHENHYDRAMINE HCL 25 MG CAP ONE; +DITROPAN PO; +DOXAZOSIN MESYLA2 MG PO; +FENTANYL CITRATE/PF 100MCG/2 ML INJ ONE; +HEPARIN SOD (PORCINE) 1000 UNIT/ML 30ML ONE; +HEPARIN SOD/SOD CHLORIDE 2,000 ML ONE; +IOPAMIDOL 370 MG/ML 200 ML INFUS..BTL INJ ONE; -IOPAMIDOL 610MG/1ML 300 MG/ML VIAL IV ONE; +LIDOCAINE HCL 2% LOCAL 20 ML VIAL ONE; +MIDAZOLAM HCL 2 MG/2 ML VIAL ONE; +NITROGLYCERIN/D5W 200 MCG/ML 250 ML ONE; +SODIUM CHLORIDE 0.9% 1000ML 1,000 ML ONE; +SODIUM CHLORIDE 0.9% 50ML 50 ML ONE; +TYLENOL WITH C1 EACH PO; +VERAPAMIL HCL 2.5 MG/ML 2 ML VIAL ONE
--- NOTE | 2017-11-25 10:36 | Operative Report ---
DATE OF PROCEDURE: PROCEDURE: Cardiac catheterization. INDICATIONS: Chest pain and positive stress test. PRE-SEDATION ASSESSMENT: Medical history, social history, previous experience with anesthesia was reviewed as documented in the preoperative medical record. Results of relevant diagnostic studies reviewed. Planned choice of anesthesia, risks, complications, benefits, and alternatives were discussed. The patient deemed appropriate candidate for planned choice of anesthesia. CONSENT: Benefits, risks, complications, and alternatives of the procedure were discussed with the patient and informed consent was obtained from patient. MEDICATIONS: Please see nursing notes for medications administered during the procedure. PROCEDURE: Patient was brought to the cardiac catheterization laboratory in a fasting state. The right wrist was prepped and draped in a sterile fashion. One percent lidocaine was used to infiltrate the right wrist over the right radial artery. A 6-Beninese sheath was placed in the right radial artery using the modified Seldinger technique. Coronary angiography was performed using a Vitaily and a JR4, 6-Beninese preformed catheters to engage the LCA and RCA respectively. Multiple orthogonal views were obtained of each coronary artery. After angiography was completed, the LAD was noted to have tandem lesions of 60% mid and 60% distal. Decided to proceed for FFR of the LAD. The Famigo FFR wire was used. A 6-Beninese left guiding catheter was used to cross both the manifold and FFR wire outside the patient. We equalized both aortic and FFR pressure in the ascending aorta. FFR wire was then used to cross the lesion in the LAD. Intracoronary nitroglycerin bolus was given and a baseline IFR was recorded. Baseline IFR was 0.91. This was an indeterminate value so we decided to proceed with FFR of the LAD. For the FFR of the LAD, IV adenosine was given. After 2 minutes of IV adenosine, FFR value was noted to be 0.78, which is significant for hemodynamic compromise due to his lesions. We decided to proceed with PCI of the mid and distal LAD. PCI of the mid and distal LAD was performed using a direct stenting technique with a Synergy 2.25 x 28 mm stent for the distal LAD and a Synergy 2.5 x 12 mm stent for the mid LAD. This provided favorable angiographic results without any dissection, thrombus or complications. The wire was removed and a final picture was taken. There were no complications. All catheters were moved over a guidewire. Anticoagulation during the case was achieved using IV heparin to reach ACT near 300 seconds. Antiplatelet therapy was administered in the can labeler with aspirin 325 and Plavix 600 mg. The exit site was closed using a TR band. The case ended without any complications. Estimated blood loss approximately 50 mL. FINDINGS 1. Left main coronary artery: Large caliber. Short normal. 2. LAD: Large vessel close to the apex. Diagonal 1 is a large vessel as well. There is a 60% lesion in the mid-LAD and another 60% lesion in the distal LAD followed by a 3rd 60% lesion in apical LAD. 3. Left circumflex: Large and nondominant vessel. Two large OM branches. Luminal irregularities only. 4. RCA is a large dominant vessel. There is a large RPDA distally and a medium size RPL. There is a 30% lesion of proximal RPDA. Otherwise, luminal irregularities only. IFR of mid and distal LAD is 0.91. FFR of mid and distal LAD 0.78. Successful PCI to mid and distal LAD with GILA times 2. COMPLICATIONS: None. SPECIMEN REMOVED: None. IMPLANTS 1. Synergy 2.25 x 28 mm drug-eluting stent. 2. Synergy 2.5 x 12 mm drug-eluting stent. ESTIMATED BLOOD LOSS: 50 mL. RECOMMENDATIONS 1. Use all ports and PCI care until TR band removal. 2. Aspirin 81 mg daily for life. Plavix 75 mg daily for at least 12 months, preferably longer. 3. Continue optimal medical therapy and risk factor control. 4. Call the office for followup in 2 weeks post procedure. Job#: [id number] NORM
== END | disposition home or self-care (01) ==
LOC: CATH LAB 06:31
PROVIDERS: ATTEND Internal Medicine
DX: I25.10 Atherosclerotic heart disease of native coronary artery without angina pectoris (principal); R94.39 Abnormal result of other cardiovascular function study; Z01.812 Encounter for preprocedural laboratory examination; Z79.82 Long term (current) use of aspirin
CPT/HCPCS: 36415; 80048; 80061; 85025; 85347; 92928; 93454; C1769; C1874; J0153; J1644; J2001; J2250; J7030; Q9967; 93571

== ENCOUNTER → 2018-04-28 | Outpatient (CLI) | payer BC ==
[~2018-04-28] MED LIST changes: -ADENOSINE 3MG/1ML 30ML VIAL ONE; -ALPRAZOLAM 0.5 MG TAB ONE; -ASPIRIN 325 MG TAB ONE; -CLOPIDOGREL BISULFATE 75 MG TAB ONE; -DIPHENHYDRAMINE HCL 25 MG CAP ONE; -FENTANYL CITRATE/PF 100MCG/2 ML INJ ONE; -HEPARIN SOD (PORCINE) 1000 UNIT/ML 30ML ONE; -HEPARIN SOD/SOD CHLORIDE 2,000 ML ONE; -IOPAMIDOL 370 MG/ML 200 ML INFUS..BTL INJ ONE; -LIDOCAINE HCL 2% LOCAL 20 ML VIAL ONE; -MIDAZOLAM HCL 2 MG/2 ML VIAL ONE; -NITROGLYCERIN/D5W 200 MCG/ML 250 ML ONE; -SODIUM CHLORIDE 0.9% 1000ML 1,000 ML ONE; -SODIUM CHLORIDE 0.9% 50ML 50 ML ONE; -VERAPAMIL HCL 2.5 MG/ML 2 ML VIAL ONE
--- NOTE | 2018-04-28 13:54 | Diagnostic Imaging Report ---
PROCEDURE:US LIVER COMPARISON:CT of the abdomen and pelvis dated 05/11/2017 INDICATIONS:Liver disease TECHNIQUE: Lennon-scale and color Doppler transverse and longitudinal images of the right upper quadrant of the abdomen were obtained. FINDINGS: Liver: Measures 12.7 cm in right mid-clavicular line. Increased echogenicity with a nodular cirrhotic contour. No masses. Main portal vein: 0.5 cm with normal hepatopetal flow. Gallbladder: Contracted gallbladder (patient ate at 8:30 AM) with stones present. Echogenic rim surrounding the gallbladder with wall thickening measuring up to 7 mm. Common Bile Duct: Measures 0.3 cm Sonographic Aguirre's sign: Negative Right kidney: Measures 11.8 x 6.2 x 5.7 cm. Normal echogenicity. No solid masses or hydronephrosis. Pancreas: Not optimally visualized. Inferior vena cava: Patent Aorta: Not optimally visualized. Ascites: None in the right upper quadrant of the abdomen. CONCLUSION: 1. Small nodular liver compatible with cirrhosis. 2. Contracted gallbladder with multiple stones present. Humble Cao D.O. Dictated by: Humble Cao D.O. on 04/28/2018 at 14:05 Electronically approved by: Humble Cao D.O. on 04/28/2018 at 14:05
== END ==
LOC: US 12:37
PROVIDERS: ATTEND Internal Medicine Interventional Cardiology
DX: K76.9 Liver disease, unspecified (principal)
CPT/HCPCS: 76705

== ENCOUNTER 2021-05-15 07:58 | Inpatient (IN) | payer MEDICARE, BC ==
[2021-05-13 15:03] LABS: BASOPHILS # (AUTO) 0.1 (0.0-0.1); BASOPHILS % 1.7 % (0.0-1.0); EOSINOPHILS # (AUTO) 0.2 (0.0-0.4); EOSINOPHILS % 5.1 % (0.0-6.0); HEMATOCRIT 30.3 % (38.2-49.6); HEMOGLOBIN 9.8 g/dL (14.0-18.0); LYMPHOCYTES # (AUTO) 1.2 (1.0-3.2); MEAN CORPUSCULAR HEMOGLOBIN 33.7 pg (28-32); MEAN CORPUSCULAR HGB CONC 32.3 g/dL (31-35); MEAN CORPUSCULAR VOLUME 104.1 fL (81-99); MONOCYTES # (AUTO) 0.4 (0.2-0.8); MONOCYTES % 10.3 % (4.4-11.3); NEUTROPHILS # (AUTO) 1.7 (2.1-6.9); NEUTROPHILS % 48.9 % (38.7-80.0); PLATELET COUNT 79 x10e3/uL (140-360); RED BLOOD COUNT 2.91 x10e6/uL (4.3-5.7); RED CELL DISTRIBUTION WIDTH 17.1 % (11.7-14.4)
[2021-05-13 15:24] LABS: ANION GAP 9.5 mmol/L (8-16); CALCIUM 8.2 mg/dL (8.4-10.2); CREATININE, SERUM 1.02 mg/dL (0.72-1.25); POTASSIUM 4.5 mmol/L (3.5-5.1)
[~2021-05-15] VITALS: Ht 188 cm; Wt 97.5 kg
[~2021-05-15 07:58] MED LIST changes: +ATORVASTATIN CA10 MG; +CLOPIDOGREL75 MG PO; +DOXAZOSIN MESYLA4 MG PO; +FUROSEMIDE20 MG PO; +GENERLAC10 GM/15 M; +LACTULOSE20 GM/30 M PO; +MINIPRESS1 MG PO; +PANTOPRAZOLE SO40 MG PO; +SPIRONOLACTONE25 MG PO; +SUCRALFATE1 GM PO; +URSODIOL300 MG PO; +XIFAXAN550 MG PO
[2021-05-15] MEDS ORDERED: GENTAMICIN 80MG/NS 100 ML 200 ML IV ONE (08:24)
[2021-05-15] MEDS ORDERED: CEFTRIAXONE 1 GM VIAL ONE (08:24)
[2021-05-15] MEDS ORDERED: SODIUM CHLORIDE 0.9% 50ML 50 ML ONE (08:25)
[2021-05-15] MEDS ORDERED: IOPAMIDOL 300MG/ML 50ML INFUS..BTL IV ONE (11:36)
[2021-05-15] MEDS ORDERED: BELLADONNA/OPIUM 30 MG SUPP RC ONE (11:37)
[2021-05-15] MEDS ORDERED: FENTANYL CITRATE/PF 100MCG/2 ML INJ ONE ×2 (12:59→13:12)
[2021-05-15] MEDS ORDERED: ONDANSETRON HCL INJ 2MG/ML 2ML 2 MG/ML VIAL IV PRN (13:15)
[2021-05-15] MEDS ORDERED: NALOXONE HCL INJ 0.4 MG/ML AMP IV PRN (13:15)
[2021-05-15] MEDS ORDERED: ACETAMINOPHEN 1000 MG/100 ML IV PRN (13:15)
[2021-05-15] MEDS ORDERED: B&O 60MG R/S 60 MG SUPP PR PRN (13:15)
[2021-05-15] MEDS ORDERED: DIPHENHYDRAMINE HCL 25 MG CAP PO PRN (13:15)
[2021-05-15] MEDS ORDERED: Morphine 2mg Syringe 2 MG/ML SYR ONE (13:35)
[2021-05-15] MEDS: MORPHINE SULFATE 1 MG/ML 30ML PCA IV PRN (13:40)
[2021-05-15] MEDS ORDERED: PROPOFOL IV EMULSION 10 MG/ML 20 ML VIAL ONE (13:57)
[2021-05-15] MEDS ORDERED: DEXAMETHASONE SOD PHOS INJ 4 MG/ML SDV ONE (13:57)
[2021-05-15] MEDS ORDERED: ONDANSETRON HCL INJ 2MG/ML 2ML 2 MG/ML VIAL ONE (13:57)
[2021-05-15] MEDS ORDERED: LIDOCAINE HCL 2% LOCAL INJ 5 ML SDV VIAL INJ ONE (13:57)
[2021-05-15] MEDS ORDERED: SEVOFLURANE INHAL SOLN 250 ML PEN BTL ONE (13:57)
[2021-05-15] MEDS ORDERED: POVIDONE IODINE 0.05% 0.05 % ML PO ONE (13:57)
[2021-05-15 14:35] VITALS: BP 125/57
[2021-05-15 14:42] VITALS: BP 125/57
[2021-05-15] MEDS: PHENAZOPYRIDINE HCL 100 MG TAB PO PRN (15:09)
[2021-05-15 16:14] VITALS: BP 125/57
[2021-05-15] MEDS ORDERED: PHENYLEPH/SHARK OIL/MO/PETROL 30 GM OINT RC PRN (16:45)
[2021-05-15] MEDS: DOCUSATE SODIUM 100 MG CAP PO SCH (16:53)
[2021-05-15] MEDS: HYDROCODONE/APAP 5MG-325MG TAB PO PRN (17:11)
[2021-05-15 17:27] LABS: BASOPHILS % 0.5 % (0.0-1.0); EOSINOPHILS % 0.3 % (0.0-6.0); HEMATOCRIT 33.3 % (38.2-49.6); HEMOGLOBIN 10.6 g/dL (14.0-18.0); LYMPHOCYTES # (AUTO) 0.7 (1.0-3.2); LYMPHOCYTES % 17.5 % (18.0-39.1); MEAN CORPUSCULAR HGB CONC 31.8 g/dL (31-35); MEAN CORPUSCULAR VOLUME 103.7 fL (81-99); MONOCYTES # (AUTO) 0.1 (0.2-0.8); MONOCYTES % 1.3 % (4.4-11.3); NEUTROPHILS % 80.1 % (38.7-80.0); PLATELET COUNT 86 x10e3/uL (140-360); RED BLOOD COUNT 3.21 x10e6/uL (4.3-5.7)
[2021-05-15 17:43] LABS: ANION GAP 11.6 mmol/L (8-16); CALCIUM 8.7 mg/dL (8.4-10.2); CREATININE, SERUM 1.24 mg/dL (0.72-1.25); POTASSIUM 4.6 mmol/L (3.5-5.1)
[2021-05-15] MEDS: SODIUM CHLORIDE 0.9% 1000ML 1,000 ML IV SCH (18:27)
[2021-05-15] MEDS ORDERED: OMEGA 3 1,0001 EACH PO (18:59)
[2021-05-15] MEDS ORDERED: VITAMIN D32400 UNIT/ PO (18:59)
[2021-05-15] MEDS ORDERED: XIFAXAN550 MG PO (19:59)
[2021-05-15] MEDS ORDERED: TURMERIC1 GM PO (20:00)
[2021-05-15 20:11] VITALS: BP 120/69
[2021-05-15 20:39] VITALS: BP 120/69
[2021-05-16] VITALS (8 sets, daily range): BP systolic 115–129; BP diastolic 58–72
[2021-05-16 04:58] LABS: BASOPHILS % 0.2 % (0.0-1.0); EOSINOPHILS % 0.2 % (0.0-6.0); HEMATOCRIT 31.6 % (38.2-49.6); HEMOGLOBIN 10.2 g/dL (14.0-18.0); LYMPHOCYTES # (AUTO) 0.9 (1.0-3.2); LYMPHOCYTES % 16.3 % (18.0-39.1); MEAN CORPUSCULAR HEMOGLOBIN 33.2 pg (28-32); MEAN CORPUSCULAR HGB CONC 32.3 g/dL (31-35); MEAN CORPUSCULAR VOLUME 102.9 fL (81-99); MONOCYTES # (AUTO) 0.3 (0.2-0.8); MONOCYTES % 5.6 % (4.4-11.3); NEUTROPHILS # (AUTO) 4.4 (2.1-6.9); NEUTROPHILS % 77.5 % (38.7-80.0); PLATELET COUNT 91 x10e3/uL (140-360); RED BLOOD COUNT 3.07 x10e6/uL (4.3-5.7); RED CELL DISTRIBUTION WIDTH 16.9 % (11.7-14.4)
[2021-05-16 05:28] LABS: ALBUMIN/GLOBULIN RATIO 0.5 (0.8-2.0); ANION GAP 13.6 mmol/L (8-16); CALCIUM 8.3 mg/dL (8.4-10.2); CREATININE, SERUM 1.52 mg/dL (0.72-1.25); POTASSIUM 5.6 mmol/L (3.5-5.1)
[2021-05-16] MEDS: ATORVASTATIN 10 MG TAB PO SCH (08:17)
[2021-05-16] MEDS: DOCUSATE SODIUM 100 MG CAP PO SCH ×2 (08:17→16:27)
[2021-05-16] MEDS: CEFTRIAXONE 1 GM in SODIUM CHLORIDE 0.9% 50ML 50 ML IV SCH (08:21)
[2021-05-16] MEDS: HYDROCODONE/APAP 5MG-325MG TAB PO PRN (10:35)
[2021-05-16] MEDS ORDERED: SOD POLYSTYRENE SULFONATE SUSP 15 GM/60 ML BTL PO NR (12:00)
[2021-05-16] MEDS ORDERED: LACTULOSE20 GM/30 M PO (12:25)
[2021-05-16] MEDS: SODIUM CHLORIDE 0.9% 1000ML 1,000 ML IV SCH (12:26)
[2021-05-16] MEDS: LACTULOSE SYRUP 20 GM/30 ML UDC PO SCH ×3 (13:54→21:33)
[2021-05-16] MEDS ORDERED: LACTULOSE SYRUP 20 GM/30 ML UDC PO SCH (15:00)
[2021-05-17] VITALS (9 sets, daily range): BP systolic 110–123; BP diastolic 56–66
[2021-05-17] MEDS: HYDROCODONE/APAP 5MG-325MG TAB PO PRN ×2 (03:50→14:11)
[2021-05-17] MEDS: PHENAZOPYRIDINE HCL 100 MG TAB PO PRN (05:18)
[2021-05-17] MEDS: SODIUM CHLORIDE 0.9% 1000ML 1,000 ML IV SCH (05:18)
[2021-05-17 05:57] LABS: BASOPHILS % 0.5 % (0.0-1.0); EOSINOPHILS # (AUTO) 0.1 (0.0-0.4); EOSINOPHILS % 1.5 % (0.0-6.0); HEMATOCRIT 29.3 % (38.2-49.6); HEMOGLOBIN 9.4 g/dL (14.0-18.0); LYMPHOCYTES # (AUTO) 1.5 (1.0-3.2); LYMPHOCYTES % 17.1 % (18.0-39.1); MEAN CORPUSCULAR HEMOGLOBIN 33.5 pg (28-32); MEAN CORPUSCULAR HGB CONC 32.1 g/dL (31-35); MEAN CORPUSCULAR VOLUME 104.3 fL (81-99); MONOCYTES # (AUTO) 0.7 (0.2-0.8); MONOCYTES % 7.5 % (4.4-11.3); NEUTROPHILS # (AUTO) 6.5 (2.1-6.9); NEUTROPHILS % 73.2 % (38.7-80.0); PLATELET COUNT 94 x10e3/uL (140-360); RED BLOOD COUNT 2.81 x10e6/uL (4.3-5.7); RED CELL DISTRIBUTION WIDTH 17.2 % (11.7-14.4)
[2021-05-17 06:20] LABS: ALBUMIN 1.9 g/dL (3.5-5.0); ALBUMIN/GLOBULIN RATIO 0.5 (0.8-2.0); ANION GAP 10.5 mmol/L (8-16); CALCIUM 8.1 mg/dL (8.4-10.2); CREATININE, SERUM 1.33 mg/dL (0.72-1.25); POTASSIUM 4.5 mmol/L (3.5-5.1)
[2021-05-17] MEDS: PANTOPRAZOLE SOD 40 MG TABEC PO SCH (06:33)
[2021-05-17] MEDS: DOCUSATE SODIUM 100 MG CAP PO SCH ×2 (08:24→16:03)
[2021-05-17] MEDS: ATORVASTATIN 10 MG TAB PO SCH (08:29)
[2021-05-17] MEDS: LACTULOSE SYRUP 20 GM/30 ML UDC PO SCH ×3 (08:29→21:00)
[2021-05-17] MEDS: RIFAXIMIN 550 MG TABLET PO SCH (08:29)
[2021-05-17] MEDS: CEFTRIAXONE 1 GM in SODIUM CHLORIDE 0.9% 50ML 50 ML IV SCH (08:29)
[2021-05-17] MEDS ORDERED: MELATONIN 3 MG TAB PO PRN (21:00)
[2021-05-18] MEDS: SODIUM CHLORIDE 0.9% 1000ML 1,000 ML IV SCH (00:25)
[2021-05-18 00:52] VITALS: BP 122/62
[2021-05-18] MEDS: HYDROCODONE/APAP 5MG-325MG TAB PO PRN ×2 (04:14→15:25)
[2021-05-18] MEDS: MORPHINE SULFATE 1 MG/ML 30ML PCA IV PRN (04:15)
[2021-05-18 05:26] LABS: BASOPHILS # (AUTO) 0.1 (0.0-0.1); BASOPHILS % 0.9 % (0.0-1.0); EOSINOPHILS # (AUTO) 0.3 (0.0-0.4); EOSINOPHILS % 5.9 % (0.0-6.0); HEMATOCRIT 27.4 % (38.2-49.6); HEMOGLOBIN 8.9 g/dL (14.0-18.0); LYMPHOCYTES # (AUTO) 1.2 (1.0-3.2); LYMPHOCYTES % 23.3 % (18.0-39.1); MEAN CORPUSCULAR HEMOGLOBIN 33.3 pg (28-32); MEAN CORPUSCULAR HGB CONC 32.5 g/dL (31-35); MEAN CORPUSCULAR VOLUME 102.6 fL (81-99); MONOCYTES # (AUTO) 0.5 (0.2-0.8); MONOCYTES % 9.5 % (4.4-11.3); NEUTROPHILS # (AUTO) 3.2 (2.1-6.9); NEUTROPHILS % 60.2 % (38.7-80.0); PLATELET COUNT 83 x10e3/uL (140-360); RED BLOOD COUNT 2.67 x10e6/uL (4.3-5.7); RED CELL DISTRIBUTION WIDTH 17.3 % (11.7-14.4)
[2021-05-18 05:27] LABS: ANION GAP 7.4 mmol/L (8-16); CREATININE, SERUM 1.05 mg/dL (0.72-1.25); POTASSIUM 4.4 mmol/L (3.5-5.1)
[2021-05-18 05:46] LABS: CALCIUM 7.6 mg/dL (8.4-10.2)
[2021-05-18 06:01] VITALS: BP 123/64
[2021-05-18 06:23] VITALS: BP 123/64
[2021-05-18] MEDS: PANTOPRAZOLE SOD 40 MG TABEC PO SCH (06:38)
[2021-05-18 07:48] VITALS: BP 129/68
[2021-05-18 08:30] VITALS: BP 129/68
[2021-05-18] MEDS: DOCUSATE SODIUM 100 MG CAP PO SCH (09:00)
[2021-05-18] MEDS: RIFAXIMIN 550 MG TABLET PO SCH (09:00)
[2021-05-18] MEDS: ATORVASTATIN 10 MG TAB PO SCH (09:00)
[2021-05-18] MEDS: CEFTRIAXONE 1 GM in SODIUM CHLORIDE 0.9% 50ML 50 ML IV SCH (09:00)
[2021-05-18] MEDS: LACTULOSE SYRUP 20 GM/30 ML UDC PO SCH ×2 (09:00→15:00)
[2021-05-18 11:47] VITALS: BP 116/59
[2021-05-18] MEDS ORDERED: LACTULOSE20 GM/30 M PO (14:23)
[2021-05-18] MEDS ORDERED: TRAMADOL HCL100 M2 PO (14:31)
[2021-05-18] MEDS ORDERED: BACTRIM DS TAB1 EACH PO (14:32)
[2021-05-18] MEDS ORDERED: ONDANSETRON HCL 4 MG ORAL DISINTEGRATING TAB PO PRN (16:00)
== END 2021-05-18 16:17 | disposition home or self-care (01) | DRG 666 ==
LOC: OR 07:58 → PACU V 13:18 → MED/SURG2 14:07
PROVIDERS: ADMIT Internal Medicine; ATTEND Internal Medicine
PROC: 0T7D8ZZ Dilation of Urethra, Via Natural or Artificial Opening Endoscopic (ICD-10-PCS; principal; 2021-05-16)
PROC: 0VB08ZZ Excision of Prostate, Via Natural or Artificial Opening Endoscopic (ICD-10-PCS; 2021-05-16)
PROC: 0TBD8ZX Excision of Urethra, Via Natural or Artificial Opening Endoscopic, Diagnostic (ICD-10-PCS; 2021-05-16)
PROC: 0T788ZZ Dilation of Bilateral Ureters, Via Natural or Artificial Opening Endoscopic (ICD-10-PCS; 2021-05-16)
PROC: BT141ZZ Fluoroscopy of Kidneys, Ureters and Bladder using Low Osmolar Contrast (ICD-10-PCS; 2021-05-16)
PROC: 0T5D8ZZ Destruction of Urethra, Via Natural or Artificial Opening Endoscopic (ICD-10-PCS; 2021-05-16)
DX: C67.8 Malignant neoplasm of overlapping sites of bladder (principal); N13.8 Other obstructive and reflux uropathy; D61.818 Other pancytopenia; N40.1 Benign prostatic hyperplasia with lower urinary tract symptoms; N35.819 Other urethral stricture, male, unspecified site; R31.0 Gross hematuria; Z79.01 Long term (current) use of anticoagulants; Z95.2 Presence of prosthetic heart valve; Z79.82 Long term (current) use of aspirin; Z79.899 Other long term (current) drug therapy; N52.9 Male erectile dysfunction, unspecified; R39.14 Feeling of incomplete bladder emptying; R35.1 Nocturia; N32.81 Overactive bladder; D50.0 Iron deficiency anemia secondary to blood loss (chronic); I25.10 Atherosclerotic heart disease of native coronary artery without angina pectoris; Z98.61 Coronary angioplasty status; K74.69 Other cirrhosis of liver; N40.0 Benign prostatic hyperplasia without lower urinary tract symptoms; Z20.822 Contact with and (suspected) exposure to COVID-19
CPT/HCPCS: 36415; 51701; 71046; 74420; 80048; 80053; 83735; 85025; 88305; 88309; 93005; 94799; 96361; C1758; J0696; J1100; J1580; J2001; J2270; J2405; J3010; J7030; U0002

== ENCOUNTER → 2021-06-03 | Outpatient (CLI) | payer MEDICARE, BC ==
[~2021-06-03] MED LIST changes: +BACTRIM DS TAB1 EACH PO; +IOPAMIDOL 370 MG/ML 200 ML INFUS..BTL INJ ONE; +OMEGA 3 1,0001 EACH PO; +SODIUM CHLORIDE 0.9% 50ML 50 ML ONE; +TRAMADOL HCL100 M2 PO; +TURMERIC1 GM PO; +VITAMIN D32400 UNIT/ PO
== END ==
LOC: NM 10:34
PROVIDERS: ATTEND Urology
DX: Z12.5 Encounter for screening for malignant neoplasm of prostate (principal); C67.9 Malignant neoplasm of bladder, unspecified; K80.20 Calculus of gallbladder without cholecystitis without obstruction; K57.90 Diverticulosis of intestine, part unspecified, without perforation or abscess without bleeding; R91.8 Other nonspecific abnormal finding of lung field
CPT/HCPCS: 71260; 74177; 78306; A9503; Q9967

== ENCOUNTER → 2021-06-12 | Day surgery (SDC) | payer MEDICARE, BC ==
[2021-06-11 12:27] LABS: BASOPHILS % 0.6 % (0.0-1.0); EOSINOPHILS # (AUTO) 0.1 (0.0-0.4); EOSINOPHILS % 1.7 % (0.0-6.0); HEMATOCRIT 27.8 % (38.2-49.6); LYMPHOCYTES # (AUTO) 1.3 (1.0-3.2); LYMPHOCYTES % 20.1 % (18.0-39.1); MEAN CORPUSCULAR HEMOGLOBIN 33.6 pg (28-32); MEAN CORPUSCULAR HGB CONC 32.4 g/dL (31-35); MEAN CORPUSCULAR VOLUME 103.7 fL (81-99); MONOCYTES # (AUTO) 0.3 (0.2-0.8); MONOCYTES % 4.7 % (4.4-11.3); NEUTROPHILS # (AUTO) 4.8 (2.1-6.9); NEUTROPHILS % 72.4 % (38.7-80.0); PLATELET COUNT 114 x10e3/uL (140-360); RED BLOOD COUNT 2.68 x10e6/uL (4.3-5.7); RED CELL DISTRIBUTION WIDTH 16.3 % (11.7-14.4)
[2021-06-11 13:01] LABS: INR 1.45; PROTHROMBIN TIME 18.6 seconds (11.9-14.5)
[2021-06-11 13:02] LABS: PARTIAL THROMBOPLASTIN TIME 35.9 seconds (23.8-35.5)
[2021-06-11 13:09] LABS: ALBUMIN/GLOBULIN RATIO 0.5 (0.8-2.0); ANION GAP 11.2 mmol/L (8-16); CALCIUM 8.7 mg/dL (8.4-10.2); CREATININE, SERUM 1.99 mg/dL (0.72-1.25)
[2021-06-11 13:14] LABS: POTASSIUM 5.2 mmol/L (3.5-5.1)
[~2021-06-12] MED LIST changes: -ATORVASTATIN CA10 MG; +ATORVASTATIN CA10 MG PO; +BUPIVACAINE HCL 0.5% INJ 30 ML VIAL INJ ONE; +FENTANYL CITRATE/PF 100MCG/2 ML INJ ONE; +HEPARIN SOD (PORCINE) 5,000 UNIT/ML VIAL ONE; +HYDROCODON-ACE1 EA16 PO; -IOPAMIDOL 370 MG/ML 200 ML INFUS..BTL INJ ONE; +LIDOCAINE HCL 1% LOCAL INJ 20 ML VIAL ONE; +LIDOCAINE HCL 2% LOCAL INJ 5 ML SDV VIAL INJ ONE; +MIDAZOLAM HCL 2 MG/2 ML VIAL ONE; +POVIDONE IODINE 0.05% 0.05 % ML PO ONE; +PROPOFOL IV EMULSION 10 MG/ML 20 ML VIAL ONE; +SODIUM CHLORIDE 0.9% 500ML 500 ML ONE; -SODIUM CHLORIDE 0.9% 50ML 50 ML ONE
[2021-06-12 15:15] VITALS: BP 126/61
== END | disposition home or self-care (01) ==
LOC: OR 09:16
PROVIDERS: ATTEND Surgery
DX: C67.9 Malignant neoplasm of bladder, unspecified (principal); I25.118 Atherosclerotic heart disease of native coronary artery with other forms of angina pectoris; I10 Essential (primary) hypertension; E78.5 Hyperlipidemia, unspecified; I71.4 Abdominal aortic aneurysm, without rupture; K74.69 Other cirrhosis of liver; I85.10 Secondary esophageal varices without bleeding; G47.19 Other hypersomnia; K44.9 Diaphragmatic hernia without obstruction or gangrene; M19.90 Unspecified osteoarthritis, unspecified site; Z01.812 Encounter for preprocedural laboratory examination; Z20.822 Contact with and (suspected) exposure to COVID-19; Z79.02 Long term (current) use of antithrombotics/antiplatelets; Z79.82 Long term (current) use of aspirin; Z79.899 Other long term (current) drug therapy; Z95.5 Presence of coronary angioplasty implant and graft
CPT/HCPCS: 36415; 36561; 76000; 80053; 85025; 85610; 85730; C1751; J0690; J1644; J2001 ×2; J2250; J2704; J3010; J7040; U0002

== ENCOUNTER 2021-06-23 09:13 | Inpatient (IN) | payer MEDICARE, BC ==
[~2021-06-23] VITALS: Ht 188 cm; Wt 97.5 kg
[~2021-06-23 09:13] MED LIST changes: -BUPIVACAINE HCL 0.5% INJ 30 ML VIAL INJ ONE; -FENTANYL CITRATE/PF 100MCG/2 ML INJ ONE; -HEPARIN SOD (PORCINE) 5,000 UNIT/ML VIAL ONE; -LIDOCAINE HCL 1% LOCAL INJ 20 ML VIAL ONE; -LIDOCAINE HCL 2% LOCAL INJ 5 ML SDV VIAL INJ ONE; -MIDAZOLAM HCL 2 MG/2 ML VIAL ONE; -POVIDONE IODINE 0.05% 0.05 % ML PO ONE; -PROPOFOL IV EMULSION 10 MG/ML 20 ML VIAL ONE; -SODIUM CHLORIDE 0.9% 500ML 500 ML ONE
[2021-06-23] MEDS ORDERED: SODIUM CHLORIDE 0.9% 250ML 250 ML IV ONE ×2 (10:45→17:15)
[2021-06-23 10:55] LABS: EOSINOPHILS % 1.6 % (0.0-6.0); LYMPHOCYTES # (AUTO) 0.6 (1.0-3.2); LYMPHOCYTES % 85.9 % (18.0-39.1); MEAN CORPUSCULAR HEMOGLOBIN 32.7 pg (28-32); MEAN CORPUSCULAR HGB CONC 32.9 g/dL (31-35); MEAN CORPUSCULAR VOLUME 99.3 fL (81-99); MONOCYTES % 1.6 % (4.4-11.3); NEUTROPHILS # (AUTO) 0.1 (2.1-6.9); NEUTROPHILS % 10.9 % (38.7-80.0); PLATELET COUNT 54 x10e3/uL (140-360); RED BLOOD COUNT 1.47 x10e6/uL (4.3-5.7); RED CELL DISTRIBUTION WIDTH 14.6 % (11.7-14.4)
[2021-06-23 11:00] LABS: HEMATOCRIT 14.6 % (38.2-49.6); HEMOGLOBIN 4.8 g/dL (14.0-18.0)
[2021-06-23] MEDS ORDERED: PIPERACILLIN/TAZOBACTAM 3.375 GM in SODIUM CHLORIDE 0.9% 50ML 50 ML IV STA (11:06)
[2021-06-23 11:13] LABS: ALBUMIN 1.8 g/dL (3.5-5.0); ALBUMIN/GLOBULIN RATIO 0.5 (0.8-2.0); ANION GAP 13.2 mmol/L (8-16); CREATININE, SERUM 2.61 mg/dL (0.72-1.25); POTASSIUM 4.2 mmol/L (3.5-5.1)
[2021-06-23 11:14] LABS: HYPOCHROMASIA SLIGHT; LYMPHOCYTES % (MANUAL) 76 % (19-48); MONOCYTES % (MANUAL) 4 % (3.4-9.0); NEUTROPHILS % (MANUAL) 20 % (40-74); PLATELET ESTIMATE MARKEDLY DECREASED; PLATELET MORPHOLOGY COMMENT NORMAL; RBC MORPHOLOGY COMMENT NORMAL
[2021-06-23 11:20] LABS: CREATINE KINASE MB 1.1 ng/mL (0-5.0)
[2021-06-23 12:26] VITALS: BP 121/63
[2021-06-23 12:30] VITALS: BP 121/63
[2021-06-23] MEDS ORDERED: HYDRALAZINE HCL 20 MG/ML VIAL IV PRN (13:45)
[2021-06-23] MEDS ORDERED: ONDANSETRON HCL INJ 2MG/ML 2ML 2 MG/ML VIAL IV PRN (13:45)
[2021-06-23] MEDS ORDERED: SODIUM CHLORIDE 0.9% 250ML 250 ML ONE ×2 (13:49→23:53)
[2021-06-23] MEDS ORDERED: URSODIOL 300 MG CAP PO SCH (15:00)
[2021-06-23] MEDS ORDERED: LACTULOSE SYRUP 20 GM/30 ML UDC PO SCH (17:00)
[2021-06-23 17:32] VITALS: BP 115/66
[2021-06-23] MEDS: SUCRALFATE 1 GM TAB PO SCH (18:37)
[2021-06-23] MEDS: LACTULOSE SYRUP 20 GM/30 ML UDC PO SCH (18:37)
[2021-06-23] MEDS: DOCUSATE SODIUM 100 MG CAP PO SCH (18:37)
[2021-06-23 18:42] LABS: CREATINE KINASE MB 1.4 ng/mL (0-5.0)
[2021-06-23 20:00] VITALS: BP 135/71
[2021-06-23 21:40] VITALS: BP 135/71
[2021-06-24] VITALS (8 sets, daily range): BP systolic 109–145; BP diastolic 57–70
[2021-06-24 00:26] LABS: % IRON SATURATION 88 % (15-50); IRON 188 ug/dL (65-175); TOTAL IRON BINDING CAPACITY 213 ug/dL (261-478); TRANSFERRIN 152 mg/dL (174-364)
[2021-06-24] MEDS: FILGRASTIM-AAFI 480 MCG/0.8 ML SYRINGE SQ SCH (07:42)
[2021-06-24 07:57] LABS: BASOPHILS % 1.7 % (0.0-1.0); LYMPHOCYTES # (AUTO) 0.5 (1.0-3.2); MEAN CORPUSCULAR HEMOGLOBIN 30.1 pg (28-32); MEAN CORPUSCULAR HGB CONC 32.8 g/dL (31-35); MEAN CORPUSCULAR VOLUME 91.7 fL (81-99); NEUTROPHILS # (AUTO) 0.1 (2.1-6.9); NEUTROPHILS % 13.3 % (38.7-80.0); RED BLOOD COUNT 2.16 x10e6/uL (4.3-5.7); RED CELL DISTRIBUTION WIDTH 16.6 % (11.7-14.4)
[2021-06-24 08:08] LABS: HEMATOCRIT 19.8 % (38.2-49.6); HEMOGLOBIN 6.5 g/dL (14.0-18.0); PLATELET COUNT 25 x10e3/uL (140-360)
[2021-06-24 08:26] LABS: ALBUMIN 1.8 g/dL (3.5-5.0); ALBUMIN/GLOBULIN RATIO 0.6 (0.8-2.0); ANION GAP 12.4 mmol/L (8-16); CALCIUM 8.7 mg/dL (8.4-10.2); CREATININE, SERUM 2.2 mg/dL (0.72-1.25); POTASSIUM 4.4 mmol/L (3.5-5.1)
[2021-06-24 08:27] LABS: BILIRUBIN,DIRECT 1.1 mg/dL (0.0-0.5); CHOL/HDL RATIO 4.8 (3.9-4.7)
[2021-06-24 08:36] LABS: CREATINE KINASE MB 1.2 ng/mL (0-5.0)
[2021-06-24 08:49] LABS: FERRITIN 624.62 ng/mL (21.81-274.66); THYROID STIMULATING HORMONE 2.233 uIU/mL (0.350-4.940)
[2021-06-24] MEDS ORDERED: RIFAXIMIN 550 MG TABLET PO SCH (09:00)
[2021-06-24] MEDS ORDERED: SODIUM CHLORIDE 0.9% 250ML 250 ML IV ONE (09:00)
[2021-06-24] MEDS ORDERED: FILGRASTIM 300 MCG/ML VIAL SC SCH (09:00)
[2021-06-24] MEDS ORDERED: FUROSEMIDE 20 MG TAB PO SCH (09:00)
[2021-06-24] MEDS: FUROSEMIDE 20 MG TAB PO SCH ×2 (09:00→10:20)
[2021-06-24] MEDS ORDERED: CLOPIDOGREL BISULFATE 75 MG TAB PO SCH (09:00)
[2021-06-24] MEDS: LACTULOSE SYRUP 20 GM/30 ML UDC PO SCH ×2 (10:20→16:39)
[2021-06-24] MEDS: FAMOTIDINE 20 MG TAB PO SCH ×2 (10:20→16:39)
[2021-06-24] MEDS: DOCUSATE SODIUM 100 MG CAP PO SCH ×2 (10:20→16:39)
[2021-06-24] MEDS: PANTOPRAZOLE SOD 40 MG TABEC PO SCH (10:20)
[2021-06-24] MEDS: SPIRONOLACTONE 25 MG TAB PO SCH (10:20)
[2021-06-24] MEDS: SUCRALFATE 1 GM TAB PO SCH ×2 (10:20→16:39)
[2021-06-24] MEDS: ASPIRIN 81 MG CHEW TAB PO SCH (10:20)
[2021-06-24] MEDS: FOLIC ACID 1 MG TAB PO SCH (10:20)
[2021-06-24] MEDS: RIFAXIMIN 550 MG TABLET PO SCH ×2 (10:21→16:39)
[2021-06-24] MEDS: ATORVASTATIN 10 MG TAB PO SCH (10:21)
[2021-06-24] MEDS ORDERED: FUROSEMIDE INJ 10 MG/ML 2 ML VIAL IV ONE ×2 (10:45→14:30)
[2021-06-24 11:12] LABS: ANISOCYTOSIS SLIGHT; HYPOCHROMASIA SLIGHT; LYMPHOCYTES % (MANUAL) 30 % (19-48); NEUTROPHILS % (MANUAL) 70 % (40-74); PLATELET ESTIMATE MARKEDLY DECREASED; PLATELET MORPHOLOGY COMMENT NORMAL; RBC MORPHOLOGY COMMENT NORMAL
[2021-06-24 11:13] LABS: SMUDGE CELLS FEW
[2021-06-24] MEDS ORDERED: ONDANSETRON HCL 4 MG ORAL DISINTEGRATING TAB PO PRN (13:45)
[2021-06-25] VITALS (8 sets, daily range): BP systolic 108–127; BP diastolic 59–76
[2021-06-25 06:31] LABS: EOSINOPHILS % 1.7 % (0.0-6.0); HEMATOCRIT 22.7 % (38.2-49.6); HEMOGLOBIN 7.7 g/dL (14.0-18.0); LYMPHOCYTES # (AUTO) 0.5 (1.0-3.2); LYMPHOCYTES % 83.3 % (18.0-39.1); MEAN CORPUSCULAR HEMOGLOBIN 30.4 pg (28-32); MEAN CORPUSCULAR HGB CONC 33.9 g/dL (31-35); MEAN CORPUSCULAR VOLUME 89.7 fL (81-99); NEUTROPHILS # (AUTO) 0.1 (2.1-6.9); RED BLOOD COUNT 2.53 x10e6/uL (4.3-5.7); RED CELL DISTRIBUTION WIDTH 15.6 % (11.7-14.4)
[2021-06-25 06:38] LABS: PLATELET COUNT 28 x10e3/uL (140-360)
[2021-06-25 06:50] LABS: ALBUMIN 1.7 g/dL (3.5-5.0); ALBUMIN/GLOBULIN RATIO 0.6 (0.8-2.0); ANION GAP 10.9 mmol/L (8-16); CALCIUM 8.8 mg/dL (8.4-10.2); CREATININE, SERUM 1.92 mg/dL (0.72-1.25); POTASSIUM 3.9 mmol/L (3.5-5.1)
[2021-06-25] MEDS ORDERED: FUROSEMIDE INJ 10 MG/ML 2 ML VIAL IV ONE (07:30)
[2021-06-25] MEDS ORDERED: SODIUM CHLORIDE 0.9% 250ML 250 ML IV ONE (08:00)
[2021-06-25] MEDS: LACTULOSE SYRUP 20 GM/30 ML UDC PO SCH ×2 (09:00→16:08)
[2021-06-25] MEDS: FUROSEMIDE 20 MG TAB PO SCH (09:26)
[2021-06-25] MEDS: SPIRONOLACTONE 25 MG TAB PO SCH (09:26)
[2021-06-25] MEDS: SUCRALFATE 1 GM TAB PO SCH ×2 (09:26→16:08)
[2021-06-25] MEDS: ATORVASTATIN 10 MG TAB PO SCH (09:26)
[2021-06-25] MEDS: DOCUSATE SODIUM 100 MG CAP PO SCH ×2 (09:26→16:08)
[2021-06-25] MEDS: PANTOPRAZOLE SOD 40 MG TABEC PO SCH (09:26)
[2021-06-25] MEDS: ASPIRIN 81 MG CHEW TAB PO SCH (09:26)
[2021-06-25] MEDS: RIFAXIMIN 550 MG TABLET PO SCH ×2 (09:26→16:08)
[2021-06-25] MEDS: FOLIC ACID 1 MG TAB PO SCH (09:26)
[2021-06-25] MEDS: FAMOTIDINE 20 MG TAB PO SCH ×2 (09:26→16:08)
[2021-06-25] MEDS: FILGRASTIM-AAFI 480 MCG/0.8 ML SYRINGE SQ SCH (10:00)
[2021-06-25 10:31] LABS: LYMPHOCYTES % (MANUAL) 69 % (19-48); MONOCYTES % (MANUAL) 10 % (3.4-9.0); NEUTROPHILS % (MANUAL) 21 % (40-74)
[2021-06-25 10:32] LABS: PLATELET ESTIMATE MARKEDLY DECREASED; PLATELET MORPHOLOGY COMMENT NORMAL; RBC MORPHOLOGY COMMENT NORMAL
[2021-06-25] MEDS ORDERED: SODIUM CHLORIDE 0.9% 250ML 250 ML ONE ×2 (15:30→16:53)
[2021-06-26] VITALS (7 sets, daily range): BP systolic 106–147; BP diastolic 69–76
[2021-06-26 05:50] LABS: HEMATOCRIT 25.6 % (38.2-49.6); HEMOGLOBIN 8.8 g/dL (14.0-18.0); LYMPHOCYTES # (AUTO) 0.6 (1.0-3.2); MEAN CORPUSCULAR HEMOGLOBIN 30.3 pg (28-32); MEAN CORPUSCULAR HGB CONC 34.4 g/dL (31-35); MEAN CORPUSCULAR VOLUME 88.3 fL (81-99); MONOCYTES # (AUTO) 0.1 (0.2-0.8); MONOCYTES % 8.7 % (4.4-11.3); NEUTROPHILS % 4.3 % (38.7-80.0); RED CELL DISTRIBUTION WIDTH 14.8 % (11.7-14.4)
[2021-06-26] MEDS: FILGRASTIM-AAFI 480 MCG/0.8 ML SYRINGE SQ SCH (05:50)
[2021-06-26 06:18] LABS: ALBUMIN 1.8 g/dL (3.5-5.0); ALBUMIN/GLOBULIN RATIO 0.6 (0.8-2.0); CALCIUM 8.9 mg/dL (8.4-10.2); CREATININE, SERUM 1.91 mg/dL (0.72-1.25)
[2021-06-26 06:34] LABS: PLATELET COUNT 43 x10e3/uL (140-360)
[2021-06-26 07:58] LABS: LYMPHOCYTES % (MANUAL) 100 % (19-48); PLATELET ESTIMATE MODERATELY DECREASED; PLATELET MORPHOLOGY COMMENT NORMAL; RBC MORPHOLOGY COMMENT NORMAL
[2021-06-26] MEDS: FUROSEMIDE 20 MG TAB PO SCH (08:50)
[2021-06-26] MEDS: SUCRALFATE 1 GM TAB PO SCH ×4 (08:50→20:26)
[2021-06-26] MEDS: SPIRONOLACTONE 25 MG TAB PO SCH (08:50)
[2021-06-26] MEDS: PANTOPRAZOLE SOD 40 MG TABEC PO SCH (08:50)
[2021-06-26] MEDS: DOCUSATE SODIUM 100 MG CAP PO SCH ×2 (08:50→16:20)
[2021-06-26] MEDS: FAMOTIDINE 20 MG TAB PO SCH ×2 (08:50→16:20)
[2021-06-26] MEDS: FOLIC ACID 1 MG TAB PO SCH (08:50)
[2021-06-26] MEDS: RIFAXIMIN 550 MG TABLET PO SCH ×2 (08:50→16:20)
[2021-06-26] MEDS: ATORVASTATIN 10 MG TAB PO SCH (08:50)
[2021-06-26] MEDS: ASPIRIN 81 MG CHEW TAB PO SCH (08:50)
[2021-06-26] MEDS: LACTULOSE SYRUP 20 GM/30 ML UDC PO SCH ×3 (08:50→16:36)
[2021-06-26] MEDS: HYDROCODONE/APAP 10MG-325MG TAB PO PRN (18:00)
[2021-06-26] MEDS ORDERED: ZOLPIDEM TARTRATE 5 MG TAB PO PRN (21:00)
[2021-06-27] VITALS (7 sets, daily range): BP systolic 93–145; BP diastolic 60–67
[2021-06-27] MEDS ORDERED: Vancomycin IV 1 GM in SODIUM CHLORIDE 0.9% 250ML 250 ML IV SCH (00:45)
[2021-06-27] MEDS ORDERED: SODIUM CHLORIDE 0.9% 250ML 250 ML ONE ×2 (06:17→15:57)
[2021-06-27] MEDS: PIPERACILLIN/TAZOBACTAM 3.375 GM in SODIUM CHLORIDE 0.9% 50ML 50 ML IV SCH ×4 (06:23→23:55)
[2021-06-27] MEDS: FILGRASTIM-AAFI 480 MCG/0.8 ML SYRINGE SQ SCH (06:23)
[2021-06-27 06:41] LABS: HEMATOCRIT 29.2 % (38.2-49.6); LYMPHOCYTES # (AUTO) 0.3 (1.0-3.2); LYMPHOCYTES % 74.4 % (18.0-39.1); MEAN CORPUSCULAR HEMOGLOBIN 30.9 pg (28-32); MEAN CORPUSCULAR HGB CONC 34.2 g/dL (31-35); MEAN CORPUSCULAR VOLUME 90.1 fL (81-99); MONOCYTES # (AUTO) 0.1 (0.2-0.8); MONOCYTES % 17.9 % (4.4-11.3); NEUTROPHILS % 5.1 % (38.7-80.0); PLATELET COUNT 51 x10e3/uL (140-360); RED BLOOD COUNT 3.24 x10e6/uL (4.3-5.7); RED CELL DISTRIBUTION WIDTH 14.9 % (11.7-14.4)
[2021-06-27 07:14] LABS: ALBUMIN 1.8 g/dL (3.5-5.0); ALBUMIN/GLOBULIN RATIO 0.5 (0.8-2.0); CALCIUM 8.5 mg/dL (8.4-10.2); CREATININE, SERUM 2.01 mg/dL (0.72-1.25)
[2021-06-27 07:40] LABS: PHOSPHORUS 3.6 MG/DL (2.3-4.7)
[2021-06-27 08:04] LABS: MAGNESIUM 0.9 MG/DL (1.3-2.1)
[2021-06-27] MEDS: FUROSEMIDE 20 MG TAB PO SCH (08:51)
[2021-06-27] MEDS: SPIRONOLACTONE 25 MG TAB PO SCH (08:51)
[2021-06-27] MEDS: ASPIRIN 81 MG CHEW TAB PO SCH (08:51)
[2021-06-27] MEDS: SUCRALFATE 1 GM TAB PO SCH ×4 (08:51→21:45)
[2021-06-27] MEDS: PANTOPRAZOLE SOD 40 MG TABEC PO SCH (08:51)
[2021-06-27] MEDS: FAMOTIDINE 20 MG TAB PO SCH ×2 (08:51→17:26)
[2021-06-27] MEDS: ATORVASTATIN 10 MG TAB PO SCH (08:51)
[2021-06-27] MEDS: LACTULOSE SYRUP 20 GM/30 ML UDC PO SCH ×2 (08:51→17:26)
[2021-06-27] MEDS: DOCUSATE SODIUM 100 MG CAP PO SCH ×2 (08:51→17:26)
[2021-06-27] MEDS: FOLIC ACID 1 MG TAB PO SCH (08:51)
[2021-06-27] MEDS: RIFAXIMIN 550 MG TABLET PO SCH ×2 (08:52→17:26)
[2021-06-27] MEDS ORDERED: MAGNESIUM SULFATE 2GM/50ML 50 ML IV ONE (09:30)
[2021-06-27 12:51] LABS: LYMPHOCYTES % (MANUAL) 67 % (19-48); MONOCYTES % (MANUAL) 27 % (3.4-9.0); MYELOCYTES % (MANUAL) 3 % (0-0); NEUTROPHILS % (MANUAL) 3 % (40-74); PLATELET ESTIMATE MODERATELY DECREASED; PLATELET MORPHOLOGY COMMENT NORMAL; RBC MORPHOLOGY COMMENT NORMAL
[2021-06-27] MEDS: HYDROCODONE/APAP 10MG-325MG TAB PO PRN (14:10)
[2021-06-27] MEDS: ACETAMINOPHEN 325 MG TAB PO PRN (15:16)
[2021-06-28] VITALS (9 sets, daily range): BP systolic 94–110; BP diastolic 53–90
[2021-06-28] MEDS: HYDROCODONE/APAP 10MG-325MG TAB PO PRN ×3 (01:50→22:38)
[2021-06-28] MEDS: ACETAMINOPHEN 325 MG TAB PO PRN (05:24)
[2021-06-28] MEDS: FILGRASTIM-AAFI 480 MCG/0.8 ML SYRINGE SQ SCH (06:09)
[2021-06-28] MEDS: PIPERACILLIN/TAZOBACTAM 3.375 GM in SODIUM CHLORIDE 0.9% 50ML 50 ML IV SCH ×3 (06:09→17:41)
[2021-06-28] MEDS: FAMOTIDINE 20 MG TAB PO SCH ×2 (07:30→17:04)
[2021-06-28] MEDS: SUCRALFATE 1 GM TAB PO SCH ×4 (07:30→22:39)
[2021-06-28] MEDS: PANTOPRAZOLE SOD 40 MG TABEC PO SCH (07:30)
[2021-06-28 07:45] LABS: HEMATOCRIT 25.3 % (38.2-49.6); HEMOGLOBIN 8.7 g/dL (14.0-18.0); LYMPHOCYTES # (AUTO) 0.5 (1.0-3.2); LYMPHOCYTES % 46.6 % (18.0-39.1); MEAN CORPUSCULAR HEMOGLOBIN 30.6 pg (28-32); MEAN CORPUSCULAR HGB CONC 34.4 g/dL (31-35); MEAN CORPUSCULAR VOLUME 89.1 fL (81-99); MONOCYTES # (AUTO) 0.2 (0.2-0.8); MONOCYTES % 23.3 % (4.4-11.3); NEUTROPHILS # (AUTO) 0.3 (2.1-6.9); NEUTROPHILS % 25.2 % (38.7-80.0); PLATELET COUNT 81 x10e3/uL (140-360); RED BLOOD COUNT 2.84 x10e6/uL (4.3-5.7); RED CELL DISTRIBUTION WIDTH 15.3 % (11.7-14.4)
[2021-06-28 08:15] LABS: ALBUMIN 1.7 g/dL (3.5-5.0); ALBUMIN/GLOBULIN RATIO 0.6 (0.8-2.0); ANION GAP 12.9 mmol/L (8-16); CALCIUM 7.9 mg/dL (8.4-10.2); CREATININE, SERUM 2.71 mg/dL (0.72-1.25); POTASSIUM 3.9 mmol/L (3.5-5.1)
[2021-06-28] MEDS: DOCUSATE SODIUM 100 MG CAP PO SCH ×2 (09:00→17:04)
[2021-06-28] MEDS: ATORVASTATIN 10 MG TAB PO SCH (09:00)
[2021-06-28] MEDS: FUROSEMIDE 20 MG TAB PO SCH (09:00)
[2021-06-28] MEDS: LACTULOSE SYRUP 20 GM/30 ML UDC PO SCH ×2 (09:00→17:04)
[2021-06-28] MEDS: FOLIC ACID 1 MG TAB PO SCH (09:00)
[2021-06-28] MEDS: ASPIRIN 81 MG CHEW TAB PO SCH (09:00)
[2021-06-28] MEDS: RIFAXIMIN 550 MG TABLET PO SCH ×2 (09:00→17:04)
[2021-06-28] MEDS: SPIRONOLACTONE 25 MG TAB PO SCH (09:00)
[2021-06-28] MEDS: MAGNESIUM OXIDE 400 MG TAB PO SCH (09:30)
[2021-06-28 09:55] LABS: BAND NEUTROPHILS % (MANUAL) 4 %; EOSINOPHILS % (MANUAL) 1 % (0-7); LYMPHOCYTES % (MANUAL) 50 % (19-48); METAMYELOCYTES % (MANUAL) 5 % (0-0); MONOCYTES % (MANUAL) 21 % (3.4-9.0); MYELOCYTES % (MANUAL) 2 % (0-0); NEUTROPHILS % (MANUAL) 15 % (40-74)
[2021-06-28 09:56] LABS: ANISOCYTOSIS SLIGHT; PLATELET ESTIMATE MODERATELY DECREASED; PLATELET MORPHOLOGY COMMENT NORMAL; RBC MORPHOLOGY COMMENT NORMAL
[2021-06-28 14:36] LABS: BASOPHILS % 0.5 % (0.0-1.0); EOSINOPHILS % 1.5 % (0.0-6.0); HEMATOCRIT 29.4 % (38.2-49.6); HEMOGLOBIN 9.8 g/dL (14.0-18.0); LYMPHOCYTES # (AUTO) 0.6 (1.0-3.2); MEAN CORPUSCULAR HEMOGLOBIN 30.5 pg (28-32); MEAN CORPUSCULAR HGB CONC 33.3 g/dL (31-35); MEAN CORPUSCULAR VOLUME 91.6 fL (81-99); MONOCYTES # (AUTO) 0.5 (0.2-0.8); NEUTROPHILS # (AUTO) 0.6 (2.1-6.9); PLATELET COUNT 119 x10e3/uL (140-360); RED BLOOD COUNT 3.21 x10e6/uL (4.3-5.7); RED CELL DISTRIBUTION WIDTH 15.6 % (11.7-14.4)
[2021-06-28] MEDS ORDERED: TRAMADOL HCL 50 MG TAB PO PRN (15:00)
[2021-06-28 20:34] LABS: BAND NEUTROPHILS % (MANUAL) 9 %; EOSINOPHILS % (MANUAL) 1 % (0-7); HYPOCHROMASIA SLIGHT; LYMPHOCYTES % (MANUAL) 47 % (19-48); METAMYELOCYTES % (MANUAL) 1 % (0-0); MONOCYTES % (MANUAL) 15 % (3.4-9.0); NEUTROPHILS % (MANUAL) 20 % (40-74); PLATELET ESTIMATE SLIGHTLY DECREASED; PLATELET MORPHOLOGY COMMENT NORMAL
[2021-06-29] VITALS (7 sets, daily range): BP systolic 96–121; BP diastolic 53–84
[2021-06-29] MEDS: PIPERACILLIN/TAZOBACTAM 3.375 GM in SODIUM CHLORIDE 0.9% 50ML 50 ML IV SCH ×4 (00:25→18:17)
[2021-06-29] MEDS: FILGRASTIM-AAFI 480 MCG/0.8 ML SYRINGE SQ SCH (05:55)
[2021-06-29 06:32] LABS: BASOPHILS # (AUTO) 0.1 (0.0-0.1); BASOPHILS % 1.1 % (0.0-1.0); EOSINOPHILS # (AUTO) 0.1 (0.0-0.4); EOSINOPHILS % 1.3 % (0.0-6.0); HEMATOCRIT 28.5 % (38.2-49.6); HEMOGLOBIN 9.6 g/dL (14.0-18.0); LYMPHOCYTES # (AUTO) 0.8 (1.0-3.2); LYMPHOCYTES % 18.8 % (18.0-39.1); MEAN CORPUSCULAR HEMOGLOBIN 30.8 pg (28-32); MEAN CORPUSCULAR HGB CONC 33.7 g/dL (31-35); MEAN CORPUSCULAR VOLUME 91.3 fL (81-99); MONOCYTES # (AUTO) 0.9 (0.2-0.8); NEUTROPHILS # (AUTO) 1.6 (2.1-6.9); NEUTROPHILS % 35.7 % (38.7-80.0); PLATELET COUNT 104 x10e3/uL (140-360); RED BLOOD COUNT 3.12 x10e6/uL (4.3-5.7); RED CELL DISTRIBUTION WIDTH 15.9 % (11.7-14.4)
[2021-06-29 06:49] LABS: ALBUMIN 1.8 g/dL (3.5-5.0); ALBUMIN/GLOBULIN RATIO 0.5 (0.8-2.0); ANION GAP 14.8 mmol/L (8-16); CALCIUM 8.3 mg/dL (8.4-10.2); CREATININE, SERUM 2.58 mg/dL (0.72-1.25); POTASSIUM 3.8 mmol/L (3.5-5.1)
[2021-06-29 07:03] LABS: ALBUMIN 1.8 g/dL (3.5-5.0); BILIRUBIN,DIRECT 1.3 mg/dL (0.0-0.5)
[2021-06-29] MEDS: FAMOTIDINE 20 MG TAB PO SCH ×2 (08:07→16:47)
[2021-06-29] MEDS: PANTOPRAZOLE SOD 40 MG TABEC PO SCH (08:07)
[2021-06-29] MEDS: SUCRALFATE 1 GM TAB PO SCH ×4 (08:07→22:18)
[2021-06-29] MEDS: DOCUSATE SODIUM 100 MG CAP PO SCH ×2 (08:08→16:47)
[2021-06-29] MEDS: ASPIRIN 81 MG CHEW TAB PO SCH (08:08)
[2021-06-29] MEDS: ATORVASTATIN 10 MG TAB PO SCH (08:08)
[2021-06-29] MEDS: MAGNESIUM OXIDE 400 MG TAB PO SCH (08:08)
[2021-06-29] MEDS: LACTULOSE SYRUP 20 GM/30 ML UDC PO SCH ×2 (08:08→16:47)
[2021-06-29] MEDS: SPIRONOLACTONE 25 MG TAB PO SCH (08:08)
[2021-06-29] MEDS: FOLIC ACID 1 MG TAB PO SCH (08:08)
[2021-06-29] MEDS: FUROSEMIDE 20 MG TAB PO SCH (08:08)
[2021-06-29] MEDS: HYDROCODONE/APAP 10MG-325MG TAB PO PRN (08:15)
[2021-06-29] MEDS: RIFAXIMIN 550 MG TABLET PO SCH ×2 (08:37→16:47)
[2021-06-29 08:51] LABS: BAND NEUTROPHILS % (MANUAL) 1 %; LYMPHOCYTES % (MANUAL) 14 % (19-48); MONOCYTES % (MANUAL) 25 % (3.4-9.0); NEUTROPHILS % (MANUAL) 60 % (40-74); NUCLEATED RED BLOOD CELLS 6
[2021-06-29 08:52] LABS: PLATELET ESTIMATE MODERATELY DECREASED; PLATELET MORPHOLOGY COMMENT FEW LARGE; RBC MORPHOLOGY COMMENT NORMAL
[2021-06-29 12:26] LABS: CLARITY,URINE CLEAR (CLEAR); COLOR,URINE YELLOW (YELLOW); KETONES,URINE NEGATIVE (NEGATIVE); LEUKOCYTE ESTERASE ,URINE NEGATIVE (NEGATIVE); NITRITE,URINE NEGATIVE (NEGATIVE); PROTEIN,URINE DIPSTICK NEGATIVE (NEGATIVE); URINE UROBILINOGEN 0.2 mg/dL (0.2 - 1)
[2021-06-29 12:33] LABS: BACTERIA,URINE MANY /HPF; EPITHELIAL CELLS,URINE FEW /LPF
[2021-06-29 12:45] LABS: SODIUM,URINE < 20 mmol/L
[2021-06-29 12:55] LABS: EOSINOPHIL SMEAR,URINE NONE SEEN (NONE SEEN)
[2021-06-29] MEDS: DIPHENHYDRAMINE HCL 25 MG CAP PO PRN ×2 (12:55→22:18)
[2021-06-29] MEDS ORDERED: HYDROCODONE/APAP 10MG-325MG TAB PO PRN (15:30)
[2021-06-30] MEDS: PIPERACILLIN/TAZOBACTAM 3.375 GM in SODIUM CHLORIDE 0.9% 50ML 50 ML IV SCH ×3 (00:16→12:05)
[2021-06-30 04:00] VITALS: BP 115/57
[2021-06-30] MEDS: FILGRASTIM-AAFI 480 MCG/0.8 ML SYRINGE SQ SCH (05:56)
[2021-06-30 07:56] VITALS: BP 118/65
[2021-06-30] MEDS: PANTOPRAZOLE SOD 40 MG TABEC PO SCH (08:58)
[2021-06-30] MEDS: SUCRALFATE 1 GM TAB PO SCH ×3 (08:58→16:23)
[2021-06-30] MEDS: ASPIRIN 81 MG CHEW TAB PO SCH (08:58)
[2021-06-30] MEDS: SPIRONOLACTONE 25 MG TAB PO SCH (08:58)
[2021-06-30] MEDS: MAGNESIUM OXIDE 400 MG TAB PO SCH (08:58)
[2021-06-30] MEDS: RIFAXIMIN 550 MG TABLET PO SCH ×2 (08:58→16:23)
[2021-06-30] MEDS: ATORVASTATIN 10 MG TAB PO SCH (08:58)
[2021-06-30] MEDS: DOCUSATE SODIUM 100 MG CAP PO SCH ×2 (08:58→16:23)
[2021-06-30] MEDS: FAMOTIDINE 20 MG TAB PO SCH ×2 (08:58→16:23)
[2021-06-30] MEDS: FUROSEMIDE 20 MG TAB PO SCH (08:58)
[2021-06-30] MEDS: LACTULOSE SYRUP 20 GM/30 ML UDC PO SCH ×2 (08:58→16:23)
[2021-06-30] MEDS: FOLIC ACID 1 MG TAB PO SCH (08:58)
[2021-06-30 09:04] LABS: BASOPHILS # (AUTO) 0.1 (0.0-0.1); BASOPHILS % 0.5 % (0.0-1.0); EOSINOPHILS # (AUTO) 0.1 (0.0-0.4); EOSINOPHILS % 0.8 % (0.0-6.0); HEMATOCRIT 29.9 % (38.2-49.6); HEMOGLOBIN 9.7 g/dL (14.0-18.0); LYMPHOCYTES # (AUTO) 2.1 (1.0-3.2); LYMPHOCYTES % 12.1 % (18.0-39.1); MEAN CORPUSCULAR HEMOGLOBIN 29.9 pg (28-32); MEAN CORPUSCULAR HGB CONC 32.4 g/dL (31-35); MEAN CORPUSCULAR VOLUME 92.3 fL (81-99); MONOCYTES # (AUTO) 3.5 (0.2-0.8); MONOCYTES % 20.6 % (4.4-11.3); NEUTROPHILS # (AUTO) 8.9 (2.1-6.9); NEUTROPHILS % 51.9 % (38.7-80.0); PLATELET COUNT 117 x10e3/uL (140-360); RED BLOOD COUNT 3.24 x10e6/uL (4.3-5.7); RED CELL DISTRIBUTION WIDTH 15.9 % (11.7-14.4)
[2021-06-30 09:51] LABS: BAND NEUTROPHILS % (MANUAL) 2 %; LYMPHOCYTES % (MANUAL) 18 % (19-48); METAMYELOCYTES % (MANUAL) 1 % (0-0); MONOCYTES % (MANUAL) 10 % (3.4-9.0); MYELOCYTES % (MANUAL) 3 % (0-0); NEUTROPHILS % (MANUAL) 64 % (40-74); NUCLEATED RED BLOOD CELLS 3
[2021-06-30 09:52] LABS: PLATELET ESTIMATE SLIGHTLY DECREASED; PLATELET MORPHOLOGY COMMENT NORMAL; RBC MORPHOLOGY COMMENT NORMAL; TOXIC GRANULATION MODERATE
[2021-06-30] MEDS ORDERED: MAG-OXIDE400 MG PO (10:03)
[2021-06-30 13:57] LABS: CREATININE,URINE RANDOM 96.28 mg/dL (63-166)
[2021-06-30] MEDS ORDERED: ACETAMINOPHEN-1 EAC4 PO (15:44)
[2021-06-30] MEDS ORDERED: HYDROCODON-ACE1 EA16 PO (15:47)
[2021-06-30 16:36] LABS: ANION GAP 13.6 mmol/L (8-16); CALCIUM 8.2 mg/dL (8.4-10.2); CREATININE, SERUM 2.34 mg/dL (0.72-1.25); POTASSIUM 3.6 mmol/L (3.5-5.1)
== END 2021-06-30 17:57 | disposition home or self-care (01) | DRG 808 ==
LOC: ER 09:15 → ERHOLD 09:38 → MED/SURG3 11:36 → OBSVTOIN 06-24 10:02
PROVIDERS: ADMIT Internal Medicine; ATTEND Internal Medicine
PROC: 30233R1 Transfusion of Nonautologous Platelets into Peripheral Vein, Percutaneous Approach (ICD-10-PCS; principal; 2021-06-23)
PROC: 30233N1 Transfusion of Nonautologous Red Blood Cells into Peripheral Vein, Percutaneous Approach (ICD-10-PCS; 2021-06-23)
DX: D61.818 Other pancytopenia (principal); K76.7 Hepatorenal syndrome; I81 Portal vein thrombosis; N17.9 Acute kidney failure, unspecified; E46 Unspecified protein-calorie malnutrition; R18.8 Other ascites; N10 Acute pyelonephritis; C77.5 Secondary and unspecified malignant neoplasm of intrapelvic lymph nodes; C78.02 Secondary malignant neoplasm of left lung; C78.01 Secondary malignant neoplasm of right lung; K92.2 Gastrointestinal hemorrhage, unspecified; S30.0XXA Contusion of lower back and pelvis, initial encounter; Z20.822 Contact with and (suspected) exposure to COVID-19; Z95.2 Presence of prosthetic heart valve; W18.39XA Other fall on same level, initial encounter; Y93.89 Activity, other specified; E78.5 Hyperlipidemia, unspecified; K75.81 Nonalcoholic steatohepatitis (NASH); C67.9 Malignant neoplasm of bladder, unspecified; I25.10 Atherosclerotic heart disease of native coronary artery without angina pectoris; E88.09 Other disorders of plasma-protein metabolism, not elsewhere classified; D63.8 Anemia in other chronic diseases classified elsewhere; D70.9 Neutropenia, unspecified; N18.9 Chronic kidney disease, unspecified; R74.01 Elevation of levels of liver transaminase levels; E77.8 Other disorders of glycoprotein metabolism; K80.80 Other cholelithiasis without obstruction; K75.4 Autoimmune hepatitis; Z91.81 History of falling; Z95.5 Presence of coronary angioplasty implant and graft; L89.152 Pressure ulcer of sacral region, stage 2; D69.59 Other secondary thrombocytopenia; E83.42 Hypomagnesemia; R50.81 Fever presenting with conditions classified elsewhere; N28.1 Cyst of kidney, acquired; R33.9 Retention of urine, unspecified; G47.00 Insomnia, unspecified
CPT/HCPCS: 36415; 71045; 72220; 76770; 80048; 80053; 80061; 80076; 81001; 81015; 82248; 82270; 82550; 82553; 82575; 82607; 82728; 82746; 83036; 83540; 83735; 84100; 84300; 84443; 84466; 84484; 85025; 85045; 86850; 86900; 86920; 87040; 87086; 93005; 94799; 99251; 99284; G0378; J1442; J1940; J2543; J3370; J3475; J7050; P9016; P9034; U0002

== ENCOUNTER 2021-07-15 02:39 | Inpatient (IN) | payer MEDICARE, BC ==
[~2021-07-15] VITALS: Ht 188 cm; Wt 97.5 kg
[~2021-07-15 02:39] MED LIST changes: +ACETAMINOPHEN-1 EAC4 PO; +MAG-OXIDE400 MG PO
[2021-07-15] MEDS ORDERED: SODIUM CHLORIDE 0.9% 1000ML 1,000 ML IV STA ×3 (02:51→04:06)
[2021-07-15] MEDS ORDERED: ZIPRASIDONE 20 MG VIAL IM ONE (03:04)
[2021-07-15] MEDS ORDERED: ZIPRASIDONE 20 MG VIAL IM STA (03:08)
[2021-07-15 03:41] LABS: BASOPHILS # (AUTO) 0.1 (0.0-0.1); BASOPHILS % 1.3 % (0.0-1.0); EOSINOPHILS # (AUTO) 0.1 (0.0-0.4); EOSINOPHILS % 1.3 % (0.0-6.0); HEMOGLOBIN 7.2 g/dL (14.0-18.0); LYMPHOCYTES # (AUTO) 0.7 (1.0-3.2); LYMPHOCYTES % 16.9 % (18.0-39.1); MEAN CORPUSCULAR HEMOGLOBIN 31.2 pg (28-32); MEAN CORPUSCULAR HGB CONC 34.4 g/dL (31-35); MEAN CORPUSCULAR VOLUME 90.5 fL (81-99); MONOCYTES # (AUTO) 0.2 (0.2-0.8); MONOCYTES % 4.4 % (4.4-11.3); NEUTROPHILS # (AUTO) 2.9 (2.1-6.9); NEUTROPHILS % 75.6 % (38.7-80.0); PLATELET COUNT 77 x10e3/uL (140-360); RED BLOOD COUNT 2.31 x10e6/uL (4.3-5.7); RED CELL DISTRIBUTION WIDTH 20.2 % (11.7-14.4)
[2021-07-15 04:13] LABS: ALBUMIN/GLOBULIN RATIO 0.5 (0.8-2.0); ANION GAP 19.6 mmol/L (8-16); CALCIUM 8.9 mg/dL (8.4-10.2); CREATININE, SERUM 4.37 mg/dL (0.72-1.25); POTASSIUM 4.6 mmol/L (3.5-5.1)
[2021-07-15 04:20] LABS: CREATINE KINASE MB 1.3 ng/mL (0-5.0)
[2021-07-15] MEDS ORDERED: KETAMINE HCL INJ 50 MG/ML 10 ML VIAL IV ONE ×2 (04:30→05:00)
[2021-07-15] MEDS ORDERED: KETAMINE HCL INJ 50 MG/ML 10 ML VIAL ONE (04:40)
[2021-07-15] MEDS: PIPERACILLIN/TAZOBACTAM 3.375 GM in SODIUM CHLORIDE 0.9% 50ML 50 ML IV SCH ×4 (04:55→21:07)
[2021-07-15 06:24] LABS: CLARITY,URINE SL CLOUDY (CLEAR); COLOR,URINE YELLOW (YELLOW); KETONES,URINE NEGATIVE (NEGATIVE); LEUKOCYTE ESTERASE ,URINE SMALL (NEGATIVE); NITRITE,URINE NEGATIVE (NEGATIVE); PROTEIN,URINE DIPSTICK NEGATIVE (NEGATIVE); URINE UROBILINOGEN 0.2 mg/dL (0.2 - 1)
[2021-07-15 06:35] LABS: RBC,URINE >50 /HPF (0-5)
[2021-07-15 06:36] LABS: BACTERIA,URINE FEW /HPF; EPITHELIAL CELLS,URINE FEW /LPF; WBC,URINE (MAN) 21-50 /HPF (0-5)
[2021-07-15 07:50] VITALS: BP 127/69
[2021-07-15 08:21] LABS: INR 1.69; PROTHROMBIN TIME 21.2 seconds (11.9-14.5)
[2021-07-15 08:23] VITALS: BP 127/69
[2021-07-15] MEDS: SODIUM CHLORIDE 0.9% 1000ML 1,000 ML IV SCH ×3 (09:07→21:07)
[2021-07-15 11:33] VITALS: BP 134/66
[2021-07-15 15:11] LABS: CREATINE KINASE MB 1.9 ng/mL (0-5.0)
[2021-07-15 15:33] LABS: ABG PCO2 24 mmHg (35-45); ABG PH 7.43 (7.35-7.45); ABG PO2 100 mmHg (80-105)
[2021-07-15 15:34] LABS: ABG HCO3 16 mmol/L (22-26); ABG TCO2 16
[2021-07-15 16:08] VITALS: BP 130/74
[2021-07-15] MEDS: SODIUM BICARBONATE 650 MG TAB PO SCH (16:27)
[2021-07-15] MEDS ORDERED: ACETAMINOPHEN PO PRN (16:30)
[2021-07-15] MEDS ORDERED: [UNRECOGNIZED DRUG - OTHER] PO PRN (16:30)
[2021-07-15] MEDS ORDERED: HYDROCODONE BIT PO PRN (16:30)
[2021-07-15] MEDS ORDERED: TRAMADOL HCL 50 MG TAB PO PRN (17:00)
[2021-07-15] MEDS ORDERED: HYDROCODONE/APAP 5MG-325MG TAB PO PRN (17:00)
[2021-07-15] MEDS ORDERED: SUCRALFATE 1 GM TAB PO SCH (17:00)
[2021-07-15] MEDS ORDERED: SODIUM CHLORIDE 0.9% 250ML 250 ML IV ONE (17:15)
[2021-07-15] MEDS ORDERED: TRAMADOL HCL 50 MG PO SCH (18:00)
[2021-07-15 19:54] VITALS: BP 110/62
[2021-07-15 21:00] VITALS: BP 110/62
[2021-07-15] MEDS ORDERED: NON-FORMULARY MEDICATION (Doxazosin Mesylate 4 MG) PO SCH (21:00)
[2021-07-15] MEDS: DOXAZOSIN MESYLATE 2 MG TAB PO SCH (21:06)
[2021-07-15] MEDS: LACTULOSE SYRUP 20 GM/30 ML UDC PO SCH (21:06)
[2021-07-15] MEDS ORDERED: SODIUM CHLORIDE 0.9% 250ML 250 ML ONE (23:34)
[2021-07-16] VITALS (9 sets, daily range): BP systolic 101–160; BP diastolic 53–101
[2021-07-16] MEDS: PIPERACILLIN/TAZOBACTAM 3.375 GM in SODIUM CHLORIDE 0.9% 50ML 50 ML IV SCH ×4 (04:38→21:42)
[2021-07-16 06:06] LABS: BASOPHILS # (AUTO) 0.1 (0.0-0.1); BASOPHILS % 1.2 % (0.0-1.0); EOSINOPHILS # (AUTO) 0.1 (0.0-0.4); EOSINOPHILS % 2.7 % (0.0-6.0); LYMPHOCYTES # (AUTO) 0.7 (1.0-3.2); LYMPHOCYTES % 17.7 % (18.0-39.1); MEAN CORPUSCULAR HEMOGLOBIN 31.7 pg (28-32); MEAN CORPUSCULAR HGB CONC 35.4 g/dL (31-35); MEAN CORPUSCULAR VOLUME 89.4 fL (81-99); MONOCYTES # (AUTO) 0.3 (0.2-0.8); MONOCYTES % 6.6 % (4.4-11.3); NEUTROPHILS # (AUTO) 2.9 (2.1-6.9); NEUTROPHILS % 71.1 % (38.7-80.0); PLATELET COUNT 52 x10e3/uL (140-360); RED BLOOD COUNT 2.18 x10e6/uL (4.3-5.7); RED CELL DISTRIBUTION WIDTH 18.5 % (11.7-14.4)
[2021-07-16 06:42] LABS: ALBUMIN 1.4 g/dL (3.5-5.0); ALBUMIN/GLOBULIN RATIO 0.5 (0.8-2.0); ANION GAP 9.3 mmol/L (8-16); CALCIUM 7.9 mg/dL (8.4-10.2); CREATININE, SERUM 3.64 mg/dL (0.72-1.25); HEMATOCRIT 19.5 % (38.2-49.6); HEMOGLOBIN 6.9 g/dL (14.0-18.0); POTASSIUM 4.3 mmol/L (3.5-5.1)
[2021-07-16] MEDS: SODIUM CHLORIDE 0.9% 1000ML 1,000 ML IV SCH ×2 (08:27→16:56)
[2021-07-16] MEDS ORDERED: SODIUM CHLORIDE 0.9% 250ML 250 ML IV ONE (08:30)
[2021-07-16] MEDS: SUCRALFATE 1 GM TAB PO SCH ×2 (08:47→16:14)
[2021-07-16] MEDS: ASPIRIN 81 MG CHEW TAB PO SCH (08:47)
[2021-07-16] MEDS: SPIRONOLACTONE 25 MG TAB PO SCH (08:47)
[2021-07-16] MEDS: ATORVASTATIN 10 MG TAB PO SCH (08:48)
[2021-07-16] MEDS: FUROSEMIDE 40 MG TAB PO SCH (08:48)
[2021-07-16] MEDS: PANTOPRAZOLE SOD 40 MG TABEC PO SCH (08:48)
[2021-07-16] MEDS: RIFAXIMIN 550 MG TABLET PO SCH (08:49)
[2021-07-16] MEDS: SODIUM BICARBONATE 650 MG TAB PO SCH (08:49)
[2021-07-16] MEDS: LACTULOSE SYRUP 20 GM/30 ML UDC PO SCH ×3 (08:51→21:00)
[2021-07-16] MEDS ORDERED: MAG-OXIDE400 MG PO (08:56)
[2021-07-16] MEDS ORDERED: ONDANSETRON ODT8 MG PO (08:56)
[2021-07-16 10:56] LABS: PLATELET ESTIMATE MARKEDLY DECREASED; PLATELET MORPHOLOGY COMMENT NORMAL; RBC MORPHOLOGY COMMENT ABNORMAL; TARGET CELLS FEW
[2021-07-16 10:57] LABS: HELMET CELLS SLIGHT; OVALOCYTES FEW
[2021-07-16] MEDS ORDERED: SODIUM CHLORIDE 0.9% 250ML 250 ML ONE ×2 (12:46→18:04)
[2021-07-16] MEDS: FUROSEMIDE INJ 10 MG/ML 2 ML VIAL IV PRN ×2 (16:55→20:56)
[2021-07-16] MEDS ORDERED: ONDANSETRON HCL INJ 2MG/ML 2ML 2 MG/ML VIAL IV PRN (18:15)
[2021-07-16] MEDS: DOXAZOSIN MESYLATE 2 MG TAB PO SCH (21:42)
[2021-07-17] VITALS (9 sets, daily range): BP systolic 128–144; BP diastolic 51–78
[2021-07-17] MEDS: PIPERACILLIN/TAZOBACTAM 3.375 GM in SODIUM CHLORIDE 0.9% 50ML 50 ML IV SCH ×2 (03:33→09:46)
[2021-07-17 05:31] LABS: BASOPHILS # (AUTO) 0.1 (0.0-0.1); BASOPHILS % 1.4 % (0.0-1.0); EOSINOPHILS # (AUTO) 0.2 (0.0-0.4); EOSINOPHILS % 3.5 % (0.0-6.0); HEMATOCRIT 24.4 % (38.2-49.6); HEMOGLOBIN 8.4 g/dL (14.0-18.0); LYMPHOCYTES % 24.5 % (18.0-39.1); MEAN CORPUSCULAR HEMOGLOBIN 29.2 pg (28-32); MEAN CORPUSCULAR HGB CONC 34.4 g/dL (31-35); MEAN CORPUSCULAR VOLUME 84.7 fL (81-99); MONOCYTES # (AUTO) 0.5 (0.2-0.8); MONOCYTES % 10.6 % (4.4-11.3); NEUTROPHILS # (AUTO) 2.5 (2.1-6.9); NEUTROPHILS % 59.5 % (38.7-80.0); PLATELET COUNT 51 x10e3/uL (140-360); RED BLOOD COUNT 2.88 x10e6/uL (4.3-5.7); RED CELL DISTRIBUTION WIDTH 19.9 % (11.7-14.4)
[2021-07-17 05:43] LABS: ANION GAP 11.7 mmol/L (8-16); CALCIUM 8.2 mg/dL (8.4-10.2); CREATININE, SERUM 3.68 mg/dL (0.72-1.25); POTASSIUM 3.7 mmol/L (3.5-5.1)
[2021-07-17] MEDS: LACTULOSE SYRUP 20 GM/30 ML UDC PO SCH ×3 (09:00→21:04)
[2021-07-17] MEDS: SPIRONOLACTONE 25 MG TAB PO SCH (09:45)
[2021-07-17] MEDS: ASPIRIN 81 MG CHEW TAB PO SCH (09:45)
[2021-07-17] MEDS: SUCRALFATE 1 GM TAB PO SCH ×3 (09:45→18:29)
[2021-07-17] MEDS: PANTOPRAZOLE SOD 40 MG TABEC PO SCH (09:46)
[2021-07-17] MEDS: ATORVASTATIN 10 MG TAB PO SCH (09:46)
[2021-07-17] MEDS: RIFAXIMIN 550 MG TABLET PO SCH (09:46)
[2021-07-17] MEDS: FUROSEMIDE 40 MG TAB PO SCH (09:46)
[2021-07-17] MEDS: SODIUM CHLORIDE 0.9% 1000ML 1,000 ML IV SCH (10:30)
[2021-07-17] MEDS ORDERED: ALBUMIN 25% 12.5GM 50ML 0 ML IV ONE (16:20)
[2021-07-17] MEDS ORDERED: ONDANSETRON HCL 4 MG ORAL DISINTEGRATING TAB PO PRN (19:15)
[2021-07-17] MEDS: DOXAZOSIN MESYLATE 2 MG TAB PO SCH (21:04)
[2021-07-18] VITALS: BP 132/62
[2021-07-18 04:00] VITALS: BP 143/82
[2021-07-18 06:23] LABS: ALBUMIN 1.4 g/dL (3.5-5.0); ALBUMIN/GLOBULIN RATIO 0.4 (0.8-2.0); ANION GAP 11.8 mmol/L (8-16); CALCIUM 8.1 mg/dL (8.4-10.2); CREATININE, SERUM 3.45 mg/dL (0.72-1.25); PHOSPHORUS 4.5 MG/DL (2.3-4.7); POTASSIUM 3.8 mmol/L (3.5-5.1)
[2021-07-18 06:43] LABS: EOSINOPHILS # (AUTO) 0.1 (0.0-0.4); EOSINOPHILS % 2.7 % (0.0-6.0); HEMATOCRIT 25.1 % (38.2-49.6); HEMOGLOBIN 8.8 g/dL (14.0-18.0); LYMPHOCYTES # (AUTO) 0.9 (1.0-3.2); LYMPHOCYTES % 22.8 % (18.0-39.1); MEAN CORPUSCULAR HEMOGLOBIN 29.8 pg (28-32); MEAN CORPUSCULAR HGB CONC 35.1 g/dL (31-35); MEAN CORPUSCULAR VOLUME 85.1 fL (81-99); MONOCYTES # (AUTO) 0.6 (0.2-0.8); MONOCYTES % 14.1 % (4.4-11.3); NEUTROPHILS # (AUTO) 2.4 (2.1-6.9); NEUTROPHILS % 59.2 % (38.7-80.0); PLATELET COUNT 52 x10e3/uL (140-360); RED BLOOD COUNT 2.95 x10e6/uL (4.3-5.7); RED CELL DISTRIBUTION WIDTH 19.8 % (11.7-14.4)
[2021-07-18] MEDS: SUCRALFATE 1 GM TAB PO SCH ×2 (07:30→16:30)
[2021-07-18 07:47] VITALS: BP 123/75
[2021-07-18 08:00] VITALS: BP 123/75
[2021-07-18] MEDS ORDERED: CEFTRIAXONE 1 GM in SODIUM CHLORIDE 0.9% 50ML 50 ML IV SCH (09:00)
[2021-07-18] MEDS: SPIRONOLACTONE 25 MG TAB PO SCH (09:07)
[2021-07-18] MEDS: ATORVASTATIN 10 MG TAB PO SCH (09:08)
[2021-07-18] MEDS: PANTOPRAZOLE SOD 40 MG TABEC PO SCH (09:08)
[2021-07-18] MEDS: LACTULOSE SYRUP 20 GM/30 ML UDC PO SCH ×2 (09:08→15:00)
[2021-07-18] MEDS: FUROSEMIDE 40 MG TAB PO SCH (09:08)
[2021-07-18] MEDS: RIFAXIMIN 550 MG TABLET PO SCH (09:08)
[2021-07-18] MEDS: ASPIRIN 81 MG CHEW TAB PO SCH (09:08)
[2021-07-18 12:06] VITALS: BP 134/51
[2021-07-18] MEDS ORDERED: CEFUROXIME500 MG PO (15:28)
[2021-07-18] MEDS ORDERED: METOCLOPRAMIDE10 MG PO (15:28)
[2021-07-18] MEDS ORDERED: MAG-OXIDE400 MG PO (15:29)
[2021-07-18 16:18] VITALS: BP 127/70
[2021-07-18] MEDS ORDERED: HEPARIN 500 UNITS/5ML MDV INJ ONE (18:00)
== END 2021-07-18 18:37 | disposition home or self-care (01) | DRG 441 ==
LOC: ER 02:58 → ERHOLD 05:00 → MED/SURG3 07:27 → MED/SURG2 07-17 16:15
PROVIDERS: ADMIT Internal Medicine; ATTEND Internal Medicine
PROC: 0W9G3ZZ Drainage of Peritoneal Cavity, Percutaneous Approach (ICD-10-PCS; principal; 2021-07-17)
PROC: 30233N1 Transfusion of Nonautologous Red Blood Cells into Peripheral Vein, Percutaneous Approach (ICD-10-PCS; 2021-07-17)
DX: K72.00 Acute and subacute hepatic failure without coma (principal); D61.810 Antineoplastic chemotherapy induced pancytopenia; N17.9 Acute kidney failure, unspecified; N18.4 Chronic kidney disease, stage 4 (severe); R18.8 Other ascites; C78.00 Secondary malignant neoplasm of unspecified lung; C77.2 Secondary and unspecified malignant neoplasm of intra-abdominal lymph nodes; N39.0 Urinary tract infection, site not specified; E87.2 Acidosis; E87.3 Alkalosis; I85.00 Esophageal varices without bleeding; E46 Unspecified protein-calorie malnutrition; K75.81 Nonalcoholic steatohepatitis (NASH); K74.69 Other cirrhosis of liver; D50.0 Iron deficiency anemia secondary to blood loss (chronic); I12.9 Hypertensive chronic kidney disease with stage 1 through stage 4 chronic kidney disease, or unspecified chronic kidney disease; D69.59 Other secondary thrombocytopenia; C67.9 Malignant neoplasm of bladder, unspecified; D63.8 Anemia in other chronic diseases classified elsewhere; T45.1X5A Adverse effect of antineoplastic and immunosuppressive drugs, initial encounter; I25.10 Atherosclerotic heart disease of native coronary artery without angina pectoris; Z95.5 Presence of coronary angioplasty implant and graft; Z95.2 Presence of prosthetic heart valve; B96.20 Unspecified Escherichia coli [E. coli] as the cause of diseases classified elsewhere; D64.81 Anemia due to antineoplastic chemotherapy; Z20.822 Contact with and (suspected) exposure to COVID-19; E77.8 Other disorders of glycoprotein metabolism; R77.1 Abnormality of globulin; D89.0 Polyclonal hypergammaglobulinemia; E88.09 Other disorders of plasma-protein metabolism, not elsewhere classified; E86.0 Dehydration; Z68.27 Body mass index [BMI] 27.0-27.9, adult
CPT/HCPCS: 36415; 36600; 49083; 70450; 71250; 74176; 74470; 76857; 80048; 80053; 81001; 82140; 82270; 82550; 82553; 82805; 83605; 84100; 84484; 85025; 85610; 86255; 86850; 86900; 86920; 87040; 87086; 87186; 93005; 94799; 97139; 99285; C1729; J0696; J1940; J2543; J3486; J7030; J7050; P9016; Q0162; U0002